=== PATIENT | male | born 1940 | race Caucasian/White ===

== ENCOUNTER 2020-09-09 11:53 | Inpatient (IN) | payer MEDICAID, MEDICARE ==
[2020-09-09] MEDS ORDERED: Potassium Chloride 10 MEQ Cap.ER PO ONE (13:20)
--- NOTE | 2020-09-09 13:21 | EDM.PDOC ---
ED HPI GENERAL MEDICAL PROBLEM - General Chief Complaint: Respiratory Problem Stated Complaint: COVID POSITIVE, TROUBLE BREATHING Time Seen by Provider: 09/09/20 13:20 Source of Information: Reports: Patient, EMS, Old Records, RN History Limitations: Reports: No Limitations - History of Present Illness INITIAL COMMENTS - FREE TEXT/NARRATIVE: 79 yo male with a dx of Covid about 12 days ago. Lives at [facility] x 1 yr. Not having fevers anymore. Became SOB yesterday and staff there decided to send him to the ER after he appeared to have labored breathing. His sats there were 97% on 4 liters/NC. Has had a course of Decadron since his Covid dx. EMS transported and reported labored breathing as well. Patient is feeling much better on arrival with no additional interventions. Onset: Gradual Onset Date: 09/08/20 Duration: Hour(s):, Constant Location: Reports: Chest Quality: Reports: Other (pain not reported) Severity: Mild Improves with: Reports: Other (oxygen) Worsens with: Reports: Other (uncertain) Context: Reports: Other (See HPI) Associated Symptoms: Reports: Shortness of Breath (now better). 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) - Related Data Allergies Allergy/AdvReac Type Severity Reaction Status Date / Time chocolate flavor Allergy Other Verified 09/09/20 12:56 spinach Allergy Cannot Verified 09/09/20 12:56 Remember Home Meds: Home Meds Acetaminophen [Pain Reliever] 325 mg PO Q4HR PRN 09/09/20 [History] Albuterol [Ventolin HFA] 2 puff IH Q4HR PRN 09/09/20 [History] Aspirin 325 mg PO BID 09/09/20 [History] Capsaicin 30 ml TP BID PRN 09/09/20 [History] Carb/Levo 25/100 2 cap PO DAILY 09/09/20 [History] Carb/Levo 50/200 1 cap PO BEDTIME 09/09/20 [History] Carb/Levo 50/200 1 cap PO BEDTIME PRN 09/09/20 [History] Clopidogrel Bisulfate [Clopidogrel] 75 mg PO DAILY 09/09/20 [History] DULoxetine HCl [Duloxetine HCl] 90 mg PO BEDTIME 09/09/20 [History] Fluticasone Propion/Salmeterol [Fluticasone-Salmeterol 500-50] 1 puff IH BID 09/09/20 [History] Magnesium Oxide 400 mg PO DAILY 09/09/20 [History] Meloxicam [Mobic] 15 mg PO DAILY 09/09/20 [History] Memantine [Namenda] 10 mg PO BID 09/09/20 [History] Midodrine 5 mg PO TID 09/09/20 [History] Mirtazapine 30 mg PO BEDTIME 09/09/20 [History] Omeprazole 20 mg PO DAILY 09/09/20 [History] Tamsulosin HCl 0.4 mg PO DAILY 09/09/20 [History] atorvaSTATin [Lipitor] 20 mg PO BEDTIME 09/09/20 [History] oxyCODONE 5 mg PO Q12HR PRN 09/09/20 [History] ED ROS GENERAL - Review of Systems Review Of Systems: See Below Constitutional: Reports: No Symptoms HEENT: Reports: No Symptoms Respiratory: Reports: Shortness of Breath (now better). Denies: Wheezing, Pleuritic Chest Pain, Cough, Sputum, Hemoptysis Cardiovascular: Reports: No Symptoms Endocrine: Reports: No Symptoms GI/Abdominal: Reports: No Symptoms : Reports: No Symptoms Musculoskeletal: Reports: No Symptoms Skin: Reports: No Symptoms Neurological: Reports: No Symptoms ED EXAM, GENERAL - Physical Exam Exam: See Below Exam Limited By: No Limitations General Appearance: Alert, WD/WN, No Apparent Distress Eye Exam: Bilateral Eye: Normal Inspection Ears: Normal External Exam, Normal Canal, Hearing Grossly Normal, Normal TMs Ear Exam: Bilateral Ear: Auricle Normal, Canal Normal, TM normal Nose: Normal Inspection, No Blood Throat/Mouth: Normal Inspection, Normal Lips, Normal Oropharynx, Normal Voice, No Airway Compromise Head: Atraumatic, Normocephalic Neck: Normal Inspection Respiratory/Chest: No Respiratory Distress, Lungs Clear, Normal Breath Sounds, No Accessory Muscle Use Cardiovascular: Regular Rate, Rhythm, No Edema GI/Abdominal: Normal Bowel Sounds, Soft, Non-Tender, No Distention Extremities: Normal Inspection, Normal Range of Motion, Non-Tender, No Pedal Edema Neurological: Alert, Oriented, CN II-XII Intact, Normal Cognition, No Motor/Sensory Deficits Psychiatric: Normal Affect, Normal Mood Skin Exam: Warm, Dry, Intact, Normal Color, No Rash Course - Vital Signs Last Recorded V/S: Last Vital Signs Temp 36.9 C 09/09/20 12:48 Pulse 67 09/09/20 15:25 Resp 18 09/09/20 14:02 BP 92/62 09/09/20 15:25 Pulse Ox 100 09/09/20 15:25 - Orders/Labs/Meds Orders: Active Orders 24 hr Category Date Time Status Ang Chest [CT] Stat Exams 09/09/20 13:49 Taken Iopamidol [Isovue-370 (76%)] Med 09/09/20 14:30 Active 100 ml IV . DIRECTED NS + KCl 20mEq/L [Normal Saline with 20 mEq KCl] 1,000 Med 09/09/20 14:00 Active ml IV ASDIRECTED Medication Orders Potassium Chloride/Sodium Chloride (Normal Saline With 20 Meq Kcl) 1,000 mls @ 500 mls/hr IV ASDIRECTED DOMINICK Last Admin: 09/09/20 14:06 Dose: 500 mls/hr Documented by: PREILOR Iopamidol (Isovue-370 (76%)) 100 ml IV . DIRECTED DOMINICK Stop: 09/09/20 20:00 Last Admin: 09/09/20 15:36 Dose: 100 ml Documented by: BO Labs: Laboratory Tests 09/09/20 09/09/20 09/09/20 Range/Units 12:43 12:43 12:43 WBC 6.7 (4.5-11.0) K/uL RBC 4.17 L (4.30-5.90) M/uL Hgb 12.3 (12.0-15.0) g/dL Hct 40.1 (40.0-54.0) % MCV 96 (80-98) fL MCH 30 (27-31) pg MCHC 31 L (32-36) % Plt Count 273 (150-400) K/uL D-Dimer, Quantitative 2597.58 H (0.0-500.0) ng/mL Sodium 142 (140-148) mmol/L Potassium 3.2 L (3.6-5.2) mmol/L Chloride 105 (100-108) mmol/L Carbon Dioxide 30 (21-32) mmol/L Anion Gap 10.2 (5.0-14.0) mmol/L BUN 25 H (7-18) mg/dL Creatinine 1.2 (0.8-1.3) mg/dL Est Cr Clr Drug Dosing 51.42 mL/min Estimated GFR (MDRD) 58 L (>60) Glucose 106 (74-106) mg/dL Calcium 8.6 (8.5-10.1) mg/dL Magnesium (1.8-2.4) mg/dL Lactate Dehydrogenase 138 (85-227) U/L C-Reactive Protein 9.96 H (0.0-0.3) mg/dL 09/09/20 Range/Units 13:20 WBC (4.5-11.0) K/uL RBC (4.30-5.90) M/uL Hgb (12.0-15.0) g/dL Hct (40.0-54.0) % MCV (80-98) fL MCH (27-31) pg MCHC (32-36) % Plt Count (150-400) K/uL D-Dimer, Quantitative (0.0-500.0) ng/mL Sodium (140-148) mmol/L Potassium (3.6-5.2) mmol/L Chloride (100-108) mmol/L Carbon Dioxide (21-32) mmol/L Anion Gap (5.0-14.0) mmol/L BUN (7-18) mg/dL Creatinine (0.8-1.3) mg/dL Est Cr Clr Drug Dosing mL/min Estimated GFR (MDRD) (>60) Glucose (74-106) mg/dL Calcium (8.5-10.1) mg/dL Magnesium 2.1 (1.8-2.4) mg/dL Lactate Dehydrogenase (85-227) U/L C-Reactive Protein (0.0-0.3) mg/dL Meds: Medications Generic Name Dose Route Start Last Admin Trade Name Freq PRN Reason Stop Dose Admin Potassium Chloride/Sodium Chloride 1,000 mls @ 500 mls/hr 09/09/20 14:00 09/09/20 14:06 Normal Saline With 20 Meq Kcl IV 500 mls/hr ASDIRECTED DOMINICK Administration Iopamidol 100 ml 09/09/20 14:30 09/09/20 15:36 Isovue-370 (76%) IV 09/09/20 20:00 100 ml . DIRECTED DOMINICK Administration Discontinued Medications Generic Name Dose Route Start Last Admin Trade Name Meron PRN Reason Stop Dose Admin Sodium Chloride 100 mls @ 3.5 mls/sec 09/09/20 14:30 09/09/20 15:36 Normal Saline IV 09/09/20 14:31 4 mls/sec ASDIRECTED DOMINICK Administration Potassium Chloride 40 meq 09/09/20 13:20 09/09/20 13:49 Potassium Chloride PO 09/09/20 13:21 40 meq ONETIME ONE Administration Sodium Chloride 10 ml 09/09/20 14:27 09/09/20 15:36 Saline Flush FLUSH 09/09/20 14:28 10 ml ONETIME ONE Administration - Radiology Interpretation Free Text/Narrative:: CXR-bilateral infiltrates of lower lobes CT angio-IMPRESSION: No pulmonary embolism. Airspace opacities in the right lung concerning for bacterial pneumonia. Coronary artery disease. Pleural calcifications. This can be seen with asbestos related pleural disease. Please note that all CT scans at this facility use dose modulation, iterative reconstruction, and/or weight-based dosing when appropriate to reduce radiation dose to as low as reasonably achievable. Dictated by Abbey Russell MD @ Sep 09 2020 3:38PM (Electronic Signature) CT Results Date: 09/09/20 CT Results Time: 15:51 Departure - Departure Time of Disposition: 15:45 Disposition: Home, Self-Care 01 Condition: Fair Clinical Impression: Elevated d-dimer, Hypokalemia, Mild dehydration - Discharge Information *PRESCRIPTION DRUG MONITORING PROGRAM REVIEWED*: Not Applicable *COPY OF PRESCRIPTION DRUG MONITORING REPORT IN PATIENT MIRI: Not Applicable Instructions: Potassium Content of Foods Referrals: Jonh Tavarez MD [Primary Care Provider] - Forms: ED Department Discharge Additional Instructions: Increase the foods that are tati in potassium in your diet. Drink enough fluids so your urine is light yellow in color. Recheck as needed. Sepsis Event Note (ED) - Evaluation Sepsis Screening Result: No Definite Risk - Focused Exam Vital Signs: Vital Signs Temp Pulse Resp BP Pulse Ox 09/09/20 15:25 67 92/62 100 09/09/20 14:02 75 18 108/67 99 09/09/20 12:48 36.9 C 64 18 136/63 98 09/09/20 11:56 36.9 C 64 18 136/63 98 - My Orders Last 24 Hours: My Active Orders 09/09/20 13:49 Ang Chest [CT] Stat 09/09/20 14:00 NS + KCl 20mEq/L [Normal Saline with 20 mEq KCl] 1,000 ml IV ASDIRECTED 09/09/20 14:30 Iopamidol [Isovue-370 (76%)] 100 ml IV . DIRECTED - Assessment/Plan Last 24 Hours: My Active Orders 09/09/20 13:49 Ang Chest [CT] Stat 09/09/20 14:00 NS + KCl 20mEq/L [Normal Saline with 20 mEq KCl] 1,000 ml IV ASDIRECTED 09/09/20 14:30 Iopamidol [Isovue-370 (76%)] 100 ml IV . DIRECTED
[2020-09-09] MEDS ORDERED: NS + KCl 20mEq/L 1,000 ML IV SCH (14:00)
--- NOTE | 2020-09-09 14:03 | CR ---
CHEST: 2 view CLINICAL HISTORY:SOB COMPARISON:2007 FINDINGS: Heart size is borderline enlarged pulmonary vascular is normal. Patient has a permanent cardiac pacer. There are atherosclerotic changes in the aorta. There is ill-defined patchy infiltrates in both lower lung argueta, right greater than left. There is some chronic blunting the left costophrenic angle IMPRESSION: Bilateral lower lobe pneumonic infiltrates, right greater than left
[2020-09-09] MEDS ORDERED: Sodium Chloride 0.9% 10 ML Syringe FLUSH ONE (14:27)
[2020-09-09] MEDS ORDERED: Iopamidol 755 Mg/ML 100 ML Bottle IV SCH (14:30)
[2020-09-09] MEDS ORDERED: Sodium Chloride 0.9% 100 ML IV SCH (14:30)
--- NOTE | 2020-09-09 15:51 | CRLCT ---
INDICATION: Shortness of breath, elevated D-dimer, recent COVID TECHNIQUE: CT chest pulmonary PE protocol acquired with 100 cc Isovue IV contrast. COMPARISON: None FINDINGS: Cardiovascular structures: Normal vascular enhancement of the pulmonary arteries, no sign of pulmonary embolism. Heart size is normal. Coronary artery calcifications. No sign of aneurysm in the thoracic aorta. Left-sided pacemaker with lead tips in the right atrium and right ventricle. Mediastinum and diana: No mass or adenopathy. Lungs: Patchy airspace opacities in the right upper and lower lobes. Small calcified granuloma left upper lobe. Pleura and pericardium: No effusions. There are pleural calcifications. Chest wall and axilla: No mass or adenopathy. Upper abdomen: Simple cysts on both kidneys. Bones: No significant findings. IMPRESSION: No pulmonary embolism. Airspace opacities in the right lung concerning for bacterial pneumonia. Coronary artery disease. Pleural calcifications. This can be seen with asbestos related pleural disease. Please note that all CT scans at this facility use dose modulation, iterative reconstruction, and/or weight-based dosing when appropriate to reduce radiation dose to as low as reasonably achievable. Dictated by Abbey Russell MD @ Sep 09 2020 3:38PM Signed by Dr. Abbey Russell @ Sep 09 2020 3:49PM
[2020-09-09] MEDS ORDERED: ALPRAZolam 0.25 MG Tab PO ONE (17:03)
[2020-09-09] MEDS ORDERED: Azithromycin 250 MG Tab PO SCH (17:15)
[2020-09-09] MEDS ORDERED: Albuterol 0.083% 2.5 MG/3 ML Neb Soln NEB ONE (17:54)
--- NOTE | 2020-09-09 18:34 | PCM.HP.2 ---
H&P History of Present Illness - General Date of Service: 09/09/20 Admit Problem/Dx: Admission Diagnosis/Problem Admission Diagnosis/Problem Pneumonia Source of Information: Patient, Family, Provider History Limitations: Reports: No Limitations - History of Present Illness Initial Comments - Free Text/Narative: CC: I can't breathe HPI: Pierce presents to the emergency room today with shortness of breath. He reports onset of symptoms about 24 hours prior to my evaluation which was about suppertime last night. He had not previously had any difficulty with coughing after eating or drinking. He felt short of breath most of the night and was still short of breath this morning. He does note that after he got to the emergency room his breathing seemed to improve. He was here for several hours and did not have any episodes of shortness of breath. Initially he was on s upplemental oxygen but this was weaned down and weaned off over a few hours. He does not report any chest pain. He has not produced any sputum but does have a loose sounding cough. He has not had any fevers. He does report some epigastric abdominal pain that started this afternoon. He was diagnosed with Covid about 12 days ago and has completed a course of steroids and the symptoms were all getting better or had resolved prior to onset of symptoms yesterday. No change in bowel or bladder habits. No lower extremity edema. Work-up in the emergency room was fairly unremarkable. He does still have an elevated D-dimer and CRP from his Covid infection. Chest x-ray showed a very subtle right lower lung infiltrate. CT pulmonary angiogram did not show any pulmonary embolism but did show a small right-sided pneumonia. Initially the plan was for the patient to go back to the correction with outpatient therapy but he became short of breath after eating his supper meal with significant tachypnea. He will be admitted for observation. - Related Data Allergies/Adverse Reactions: Allergies Allergy/AdvReac Type Severity Reaction Status Date / Time chocolate flavor Allergy Other Verified 09/09/20 12:56 spinach Allergy Cannot Verified 09/09/20 12:56 Remember Home Medications: Home Meds Acetaminophen [Pain Reliever] 325 mg PO Q4HR PRN 09/09/20 [History] Albuterol [Ventolin HFA] 2 puff IH Q4HR PRN 09/09/20 [History] Aspirin 325 mg PO BID 09/09/20 [History] Azithromycin 250 mg PO DAILY #4 tablet 09/09/20 [Rx] Capsaicin 30 ml TP BID PRN 09/09/20 [History] Carbidopa/Levodopa [Carbidopa-Levo ER 50-200] 1 tab PO BEDTIME 09/09/20 [History] Carbidopa/Levodopa [Carbidopa-Levo ER 50-200] 1 tab PO BEDTIME PRN 09/09/20 [History] Carbidopa/Levodopa [Carbidopa-Levodopa 25-250] 2 tab PO QID 09/09/20 [History] Clopidogrel Bisulfate [Clopidogrel] 75 mg PO DAILY 09/09/20 [History] DULoxetine HCl [Duloxetine HCl] 90 mg PO BEDTIME 09/09/20 [History] Fluticasone Propion/Salmeterol [Fluticasone-Salmeterol 500-50] 1 puff IH BID 09/09/20 [History] Magnesium Oxide 400 mg PO DAILY 09/09/20 [History] Meloxicam [Mobic] 15 mg PO DAILY 09/09/20 [History] Memantine [Namenda] 10 mg PO BID 09/09/20 [History] Midodrine 5 mg PO TID 09/09/20 [History] Mirtazapine 30 mg PO BEDTIME 09/09/20 [History] Omeprazole 20 mg PO DAILY 09/09/20 [History] Tamsulosin HCl 0.4 mg PO DAILY 09/09/20 [History] atorvaSTATin [Lipitor] 20 mg PO BEDTIME 09/09/20 [History] oxyCODONE 5 mg PO Q12HR PRN 09/09/20 [History] Past Medical History HEENT History: Reports: Allergic Rhinitis, Macular Degeneration, Other (See Below) Other HEENT History: dry eye Cardiovascular History: Reports: Pacemaker, Other (See Below) Other Cardiovascular History: hypotension Respiratory History: Reports: Asthma Gastrointestinal History: Reports: Chronic Constipation, GERD Genitourinary History: Reports: BPH Musculoskeletal History: Reports: Back Pain, Chronic, Fracture, Osteoporosis Neurological History: Reports: Parkinson's Other Neuro History: dementia Psychiatric History: Reports: Dementia, Depression - Infectious Disease History Infectious Disease History: Reports: Other (See Below) Other Infectious Disease History: states unknown - Past Surgical History Cardiovascular Surgical History: Reports: Coronary Artery Stent Musculoskeletal Surgical History: Reports: Hip Replacement Social & Family History - Family History Cardiac: Denies: CAD - Tobacco Use Tobacco Use Status *Q: Former Tobacco User Used Tobacco, but Quit: Yes Month/Year Tobacco Last Used: unknown - Caffeine Use Caffeine Use: Reports: Soda - Recreational Drug Use Recreational Drug Use: No H&P Review of Systems - Review of Systems: Review Of Systems: See Below Free Text/Narrative: A complete 12 point review of systems was obtained. Pertinent positives and negatives are noted in the history of present illness. All other systems were reviewed and were negative except as noted. Exam - Exam Exam: See Below - Vital Signs Vital Signs: Last Vital Signs Temp 36.1 C 09/09/20 17:23 Pulse 77 09/09/20 17:23 Resp 22 H 09/09/20 17:23 BP 116/50 L 09/09/20 17:23 Pulse Ox 97 09/09/20 17:23 Weight: 85.729 kg - Exam Quality Assessment: No: Supplemental Oxygen General: Alert, Oriented, Cooperative, Mild Distress (Increased work of breathing) HEENT: Conjunctiva Clear, Other (Poor dentition with few teeth). No: Mucosa Moist & Guinda (Dry) Neck: Supple, Trachea Midline. No: JVD Lungs: Rhonchi (Mild diffuse and especially in the upper lung argueta). No: Normal Respiratory Effort (Increased work of breathing) Cardiovascular: Regular Rate, Regular Rhythm, Other (Pacemaker in the left upper chest with no surrounding erythema or warmth). No: Systolic Murmur GI/Abdominal Exam: Normal Bowel Sounds, Soft, No Distention, Tender (Moderate tenderness in the epigastrium and left upper quadrant) Extremities: No Pedal Edema. No: Increased Warmth Peripheral Pulses: 2+: Dorsalis Pedis (L), Dorsalis Pedis (R) Skin: Warm, Dry Neuro Extensive - Mental Status: Alert, Nl Response to Commands Neuro Extensive - Motor, Sensory, Reflexes: Tremor (Tremor of both arms and hands). No: Dysarthria, Abnormal Motor Psychiatric: Alert, Normal Affect - Patient Data Lab Results Last 24 hrs: Laboratory Results - last 24 hr 09/09/20 09/09/20 09/09/20 Range/Units 12:43 12:43 12:43 WBC 6.7 (4.5-11.0) K/uL RBC 4.17 L (4.30-5.90) M/uL Hgb 12.3 (12.0-15.0) g/dL Hct 40.1 (40.0-54.0) % MCV 96 (80-98) fL MCH 30 (27-31) pg MCHC 31 L (32-36) % Plt Count 273 (150-400) K/uL D-Dimer, Quantitative 2597.58 H (0.0-500.0) ng/mL Sodium 142 (140-148) mmol/L Potassium 3.2 L (3.6-5.2) mmol/L Chloride 105 (100-108) mmol/L Carbon Dioxide 30 (21-32) mmol/L Anion Gap 10.2 (5.0-14.0) mmol/L BUN 25 H (7-18) mg/dL Creatinine 1.2 (0.8-1.3) mg/dL Est Cr Clr Drug Dosing 51.42 mL/min Estimated GFR (MDRD) 58 L (>60) Glucose 106 (74-106) mg/dL Calcium 8.6 (8.5-10.1) mg/dL Magnesium (1.8-2.4) mg/dL Lactate Dehydrogenase 138 (85-227) U/L C-Reactive Protein 9.96 H (0.0-0.3) mg/dL 1118/20 Range/Units 13:20 WBC (4.5-11.0) K/uL RBC (4.30-5.90) M/uL Hgb (12.0-15.0) g/dL Hct (40.0-54.0) % MCV (80-98) fL MCH (27-31) pg MCHC (32-36) % Plt Count (150-400) K/uL D-Dimer, Quantitative (0.0-500.0) ng/mL Sodium (140-148) mmol/L Potassium (3.6-5.2) mmol/L Chloride (100-108) mmol/L Carbon Dioxide (21-32) mmol/L Anion Gap (5.0-14.0) mmol/L BUN (7-18) mg/dL Creatinine (0.8-1.3) mg/dL Est Cr Clr Drug Dosing mL/min Estimated GFR (MDRD) (>60) Glucose (74-106) mg/dL Calcium (8.5-10.1) mg/dL Magnesium 2.1 (1.8-2.4) mg/dL Lactate Dehydrogenase (85-227) U/L C-Reactive Protein (0.0-0.3) mg/dL Result Diagrams: 09/09/20 12:43 09/09/20 12:43 Imaging Impressions Last 24 hrs: All images below were personally reviewed Chest [id number] subtle right lower lung infiltrate but no large infiltrate. No mass or effusion. Heart size is normal. CT pulmonary angiogram-no pulmonary embolism. Very small right upper lung infiltrate and small to moderate right lower lung infiltrate consistent with pneumonia. No significant effusion. No mass. Sepsis Event Note - Evaluation Sepsis Screening Result: No Definite Risk - Focused Exam Vital Signs: Vital Signs Temp Pulse Resp BP Pulse Ox 09/09/20 17:23 36.1 C 77 22 H 116/50 L 97 09/09/20 15:25 67 92/62 100 09/09/20 14:02 75 18 108/67 99 09/09/20 12:48 36.9 C 64 18 136/63 98 09/09/20 11:56 36.9 C 64 18 136/63 98 *Q Meaningful Use (ADM) - VTE Risk Assess *Q Each Risk Factor Represents 1 Point: Obesity ( BMI > 25 kg/m2), Serious lung disease including pneumonia Total Score 1 Point Risk Factors: 2 Each Risk Factor Represents 2 Points: None Total Score 2 Point Risk Factors: 0 Each Risk Factor Represents 3 Points: Age 75 Years or Greater Total Score 3 Point Risk Factors: 3 Each Risk Factor Represents 5 Points: Elective Major Lower Extremity Arthroplasty Total Score 5 Point Risk Factors: 5 Venous Thromboembolism Risk Factor Score *Q: 10 - Problem List (1) Right lower lobe pneumonia SNOMED Code(s): 957345669 ICD Code: J18.9 - PNEUMONIA, UNSPECIFIED ORGANISM Status: Acute Current V isit: Yes Qualifiers: Pneumonia type: due to unspecified organism Qualified Code(s): J18.9 - Pneumonia, unspecified organism (2) Parkinson's disease SNOMED Code(s): 18403649 ICD Code: G20 - PARKINSON'S DISEASE Status: Chronic Current Visit: Yes (3) COPD (chronic obstructive pulmonary disease) SNOMED Code(s): 30873248 ICD Code: J44.9 - CHRONIC OBSTRUCTIVE PULMONARY DISEASE, UNSPECIFIED Status: Chronic Current Visit: Yes Qualifiers: Emphysema type: unspecified Problem List Initiated/Reviewed/Updated: Yes Orders Last 24hrs: Active Orders 24 hr Category Date Time Status Patient Status Manage Transfer [TRANSFER] Routine ADT 09/09/20 18:26 Ordered RT Aerosol Therapy [RC] ASDIRECTED Care 09/09/20 17:55 Active TROPONIN I [CHEM] Urgent Lab 09/09/20 18:25 Received Azithromycin [Zithromax] Med 09/09/20 17:15 Active 500 mg PO DAILY Iopamidol [Isovue-370 (76%)] Med 09/09/20 14:30 Active 100 ml IV . DIRECTED cefTRIAXone [Rocephin] 1 gm Med 09/09/20 19:00 Active Sodium Chloride 0.9% [Normal Saline] 50 ml IV Q24H Resuscitation Status Routine Resus Stat 09/09/20 18:30 Ordered Medication Orders Azithromycin (Zithromax) 500 mg PO DAILY DOMINICK Last Admin: 09/09/20 17:10 Dose: 500 mg Documented by: PREILOR Ceftriaxone Sodium 1 gm/ (Sodium Chloride) 50 mls @ 100 mls/hr IV Q24H DOMINICK Iopamidol (Isovue-370 (76%)) 100 ml IV . DIRECTED DOMINICK Stop: 09/09/20 20:00 Last Admin: 09/09/20 15:36 Dose: 100 ml Documented by: BO Assessment/Plan Comment:: ASSESSMENT AND PLAN - Right lower lobe pneumonia-manifestations including tachypnea and cough. This could possibly be aspiration pneumonia versus community-acquired pneumonia versus secondary bacterial pneumonia. CT scan showed a very small right upper lung infiltrate and a small to moderate right lower lung infiltrate. He did have worsening of symptoms right after he ate is supper. I did personally observe him coughing after drinking water. He is not febrile. His white count is normal. He did have Covid about 2 weeks ago but has seemed to recover from this. -Ceftriaxone and azithromycin -Supplement oxygen if needed -Scheduled and as needed nebulizers -Symptomatic management of the cough -Speech pathology evaluation tomorrow COPD-this has been stable. No evidence for exacerbation at this time. No wheezing. -Continue home medications Parkinson's disease-tremor is more impressive in the setting of his acute illness. -Continue home medications Maintenance issues - - DVT prophylaxis -he is on twice daily aspirin - GI prophylaxis -PPI - Nutrition -pured diet with thickened liquids - Grant catheter -not indicated CODE STATUS -DNR/DNI Admission justification -patient will be referred observation status for close monitoring as antibiotics are initiated and speech pathology evaluates the patient. Disposition -I would anticipate discharge back to the correction after the hospital stay Shabbir Dunn M.D. - Mortality Measure Prognosis:: Good
[2020-09-09] MEDS ORDERED: cefTRIAXone 1 GM in Sodium Chloride 0.9% 50 ML IV SCH (19:00)
[2020-09-09] MEDS ORDERED: Ondansetron 4 MG Tab.DIS PO PRN (19:19)
[2020-09-09] MEDS ORDERED: guaiFENesin/Dextromethorphan 100-10 MG/5 ML Soln 10 ML Cup PO PRN (19:19)
[2020-09-09] MEDS ORDERED: LORazepam 0.5 MG Tab PO PRN (19:19)
[2020-09-09] MEDS ORDERED: Magnesium Hydroxide 400 MG/5 ML Susp 30 ML Cup PO PRN (19:19)
[2020-09-09] MEDS ORDERED: oxyCODONE 5 MG Tab PO PRN (19:19)
[2020-09-09] MEDS ORDERED: Acetaminophen 325 MG Tab PO PRN (19:19)
[2020-09-09] MEDS ORDERED: Albuterol 0.083% 2.5 MG/3 ML Neb Soln NEB PRN (19:19)
[2020-09-09] MEDS ORDERED: Benzonatate 100 MG Cap PO PRN (19:19)
[2020-09-09] MEDS ORDERED: Ondansetron 4 MG/2 ML SDV IV PRN (19:19)
[2020-09-09] MEDS: Albuterol/Ipratropium 3.0-0.5 MG/3 ML Neb Soln NEB SCH (20:00)
[2020-09-09] MEDS ORDERED: LORazepam 2 MG/ML SDV IVPUSH PRN (20:07)
[2020-09-09] MEDS ORDERED: Morphine 4 MG/ML Syringe IVPUSH PRN (20:59)
[2020-09-09] MEDS ORDERED: Lactobacillus Rhamnosus GG (Probiotic) Cap PO SCH (21:00)
[2020-09-09] MEDS ORDERED: methylPREDNISolone Sodium Succinate 125 MG/2 ML SDV IVPUSH ONE (21:00)
[2020-09-09] MEDS ORDERED: Aspirin 325 MG Tab.EC PO SCH (21:00)
[2020-09-09] MEDS ORDERED: Melatonin 3 MG Tab PO SCH (21:00)
[2020-09-09] MEDS: Meropenem 1 GM in Sodium Chloride 0.9% 100 ML IV SCH (21:11)
[2020-09-09] MEDS: Morphine 4 MG/ML Syringe IVPUSH PRN (22:29)
[2020-09-09] MEDS: LORazepam 2 MG/ML SDV IVPUSH PRN (22:52)
[2020-09-09] MEDS ORDERED: Furosemide 20 MG/2 ML VIAL IVPUSH ONE (23:00)
[2020-09-09] MEDS: Ketorolac 30 MG/ML SDV IVPUSH PRN (23:41)
[2020-09-10] MEDS: Morphine 4 MG/ML Syringe IVPUSH PRN ×9 (00:19→23:53)
--- NOTE | 2020-09-10 00:40 | PCM.SN.2 ---
- Free Text/Narrative Note: time: 2400 call from ICU Nursing. concerns of restlessness, increase fever, anxious. complaints of abdominal pain O: vital signs Temp 101.2 to 97.4- pulse 84 Resp rate 28 B/P 139/115 Oxygen sat 96% on 2 liters., Grant cath with clear yellow urine Mr. Monsivais has mild tremors (has Parkinson's), mild pallor, lungs with decreased breath sound, crackles noted. abdomen soft. legs not edema, cyanosis A: right pneumonia, Covid 19 - 12 days ago. P: labs, CBC, BMP, ABG. Imaging- chest and abdomen order: NPO, IV Tylenol 1000mg every 6 hours as needed for fever or pain. continue current medication and monitoring
[2020-09-10] MEDS ORDERED: Acetaminophen 1,000 MG in Premix Bag 1 BAG IV ONE (00:45)
[2020-09-10] MEDS: LORazepam 2 MG/ML SDV IVPUSH PRN ×5 (03:29→21:47)
[2020-09-10] MEDS: methylPREDNISolone Sodium Succinate 125 MG/2 ML SDV IVPUSH SCH ×3 (04:59→21:33)
[2020-09-10] MEDS: Meropenem 1 GM in Sodium Chloride 0.9% 100 ML IV SCH ×3 (05:01→21:33)
[2020-09-10] MEDS ORDERED: Acetaminophen 1,000 MG in Premix Bag 1 BAG IV SCH (06:00)
[2020-09-10] MEDS: Albuterol/Ipratropium 3.0-0.5 MG/3 ML Neb Soln NEB SCH ×5 (07:02→21:48)
[2020-09-10] MEDS ORDERED: Pantoprazole 40 MG Tab.CR PO SCH (07:30)
[2020-09-10] MEDS ORDERED: Capsaicin 0.025% Crm 60 GM Tube TOP PRN (07:53)
[2020-09-10] MEDS: Ketorolac 30 MG/ML SDV IVPUSH PRN (08:42)
[2020-09-10] MEDS ORDERED: Memantine 10 MG Tab PO SCH (09:00)
[2020-09-10] MEDS ORDERED: Clopidogrel 75 MG Tab PO SCH (09:00)
[2020-09-10] MEDS ORDERED: Meloxicam 7.5 MG Tab PO SCH (09:00)
[2020-09-10] MEDS ORDERED: Tamsulosin 0.4 MG Cap.ER PO SCH (09:00)
[2020-09-10] MEDS ORDERED: Magnesium Oxide 400 MG Tab PO SCH (09:00)
[2020-09-10] MEDS ORDERED: Azithromycin 250 MG Tab PO SCH (09:00)
[2020-09-10] MEDS ORDERED: Midodrine 5 MG Tab PO SCH (09:00)
[2020-09-10] MEDS ORDERED: Acetaminophen 650 MG Supp RECTAL PRN (09:10)
--- NOTE | 2020-09-10 09:12 | PCM.PN ---
- General Info Date of Service: 09/10/20 Subjective Update: Patient had a decline in his respiratory status overnight. He had increasing tachypnea and hypoxia. He was started on noninvasive positive pressure ventilation with a good response. He continued to be somewhat tachypneic but after several doses of morphine and lorazepam was able to settle down and has been resting comfortably since then. His oxygenation has been excellent since his respiratory rate slowed down. He did have a fever last night but temper ature is normal today. He was noted to be coughing after trying to take sips of water last night prior to him becoming n.p.o. He is minimally responsive this morning and not able to get any history out of him. Functional Status: Denies: Tolerating Diet - Review of Systems General: Reports: Fever Pulmonary: Reports: Shortness of Breath, Cough Psychiatric: Reports: Confusion - Patient Data Vitals - Most Recent: Last Vital Signs Temp 35 C L 09/10/20 07:34 Pulse 67 09/10/20 07:34 Resp 15 09/10/20 04:45 BP 138/80 09/10/20 07:34 Pulse Ox 94 L 09/10/20 07:34 Weight - Most Recent: 85.729 kg I&O - Last 24 Hours: Intake & Output 09/09/20 09/10/20 09/10/20 22:59 06:59 14:59 Intake Total 450 Output Total 1400 Balance -950 Lab Results Last 24 Hours: Laboratory Results - last 24 hr 09/09/20 09/09/20 09/09/20 Range/Units 12:43 12:43 12:43 WBC 6.7 (4.5-11.0) K/uL RBC 4.17 L (4.30-5.90) M/uL Hgb 12.3 (12.0-15.0) g/dL Hct 40.1 (40.0-54.0) % MCV 96 (80-98) fL MCH 30 (27-31) pg MCHC 31 L (32-36) % Plt Count 273 (150-400) K/uL Neut % (Auto) (36-66) % Lymph % (Auto) (24-44) % Routt % (Auto) (2-6) % Eos % (Auto) (2-4) % Baso % (Auto) (0-1) % D-Dimer, Quantitative 2597.58 H (0.0-500.0) ng/mL Puncture Site ABG pH (7.350-7.450) ABG pCO2 (35.0-42.0) mmHg ABG pO2 (75.0-100.0) mmHg ABG HCO3 (22.0-26.0) mmol/L ABG Total CO2 (23.0-27.0) mmol/L ABG O2 Saturation (95.0-98.0) % ABG O2 Content (15.0-23.0) %vol ABG Base Excess mm/L ABG Hemoglobin (13.5-18.0) g/dL ABG Oxyhemoglobin % ABG Carboxyhemoglobin (0.0-1.6) % ABG Methemoglobin % Matt Test O2 Delivery Device Oxygen Flow Rate L Sodium 142 (140-148) mmol/L Potassium 3.2 L (3.6-5.2) mmol/L Chloride 105 (100-108) mmol/L Carbon Dioxide 30 (21-32) mmol/L Anion Gap 10.2 (5.0-14.0) mmol/L BUN 25 H (7-18) mg/dL Creatinine 1.2 (0.8-1.3) mg/dL Est Cr Clr Drug Dosing 51.42 mL/min Estimated GFR (MDRD) 58 L (>60) Glucose 106 (74-106) mg/dL Calcium 8.6 (8.5-10.1) mg/dL Magnesium (1.8-2.4) mg/dL Lactate Dehydrogenase 138 (85-227) U/L Troponin I (0.000-0.056) ng/mL C-Reactive Protein 9.96 H (0.0-0.3) mg/dL Procalcitonin ng/mL 09/09/20 09/09/20 09/10/20 Range/Units 13:20 18:25 00:37 WBC 11.9 H (4.5-11.0) K/uL RBC 4.34 (4.30-5.90) M/uL Hgb 13.0 (12.0-15.0) g/dL Hct 39.9 L (40.0-54.0) % MCV 92 (80-98) fL MCH 30 (27-31) pg MCHC 33 (32-36) % Plt Count 287 (150-400) K/uL Neut % (Auto) 96 H (36-66) % Lymph % (Auto) 2 L (24-44) % Routt % (Auto) 2 (2-6) % Eos % (Auto) 0 L (2-4) % Baso % (Auto) 0 (0-1) % D-Dimer, Quantitative (0.0-500.0) ng/mL Puncture Site ABG pH (7.350-7.450) ABG pCO2 (35.0-42.0) mmHg ABG pO2 (75.0-100.0) mmHg ABG HCO3 (22.0-26.0) mmol/L ABG Total CO2 (23.0-27.0) mmol/L ABG O2 Saturation (95.0-98.0) % ABG O2 Content (15.0-23.0) %vol ABG Base Excess mm/L ABG Hemoglobin (13.5-18.0) g/dL ABG Oxyhemoglobin % ABG Carboxyhemoglobin (0.0-1.6) % ABG Methemoglobin % Matt Test O2 Delivery Device Oxygen Flow Rate L Sodium (140-148) mmol/L Potassium (3.6-5.2) mmol/L Chloride (100-108) mmol/L Carbon Dioxide (21-32) mmol/L Anion Gap (5.0-14.0) mmol/L BUN (7-18) mg/dL Creatinine (0.8-1.3) mg/dL Est Cr Clr Drug Dosing mL/min Estimated GFR (MDRD) (>60) Glucose (74-106) mg/dL Calcium (8.5-10.1) mg/dL Magnesium 2.1 (1.8-2.4) mg/dL Lactate Dehydrogenase (85-227) U/L Troponin I < 0.017 (0.000-0.056) ng/mL C-Reactive Protein (0.0-0.3) mg/dL Procalcitonin ng/mL 09/10/20 09/10/20 09/10/20 Range/Units 00:37 00:37 00:37 WBC (4.5-11.0) K/uL RBC (4.30-5.90) M/uL Hgb (12.0-15.0) g/dL Hct (40.0-54.0) % MCV (80-98) fL MCH (27-31) pg MCHC (32-36) % Plt Count (150-400) K/uL Neut % (Auto) (36-66) % Lymph % (Auto) (24-44) % Routt % (Auto) (2-6) % Eos % (Auto) (2-4) % Baso % (Auto) (0-1) % D-Dimer, Quantitative (0.0-500.0) ng/mL Puncture Site Rt radial ABG pH 7.552 H (7.350-7.450) ABG pCO2 23.9 L (35.0-42.0) mmHg ABG pO2 73.4 L (75.0-100.0) mmHg ABG HCO3 21.0 L (22.0-26.0) mmol/L ABG Total CO2 18.1 L (23.0-27.0) mmol/L ABG O2 Saturation 95.7 (95.0-98.0) % ABG O2 Content 17.5 (15.0-23.0) %vol ABG Base Excess 0.3 mm/L ABG Hemoglobin 13.2 L (13.5-18.0) g/dL ABG Oxyhemoglobin 94.3 % ABG Carboxyhemoglobin 0.9 (0.0-1.6) % ABG Methemoglobin 0.6 % Matt Test Passed O2 Delivery Device Nasal cannula Oxygen Flow Rate 1.0 L Sodium 143 (140-148) mmol/L Potassium 4.0 (3.6-5.2) mmol/L Chloride 107 (100-108) mmol/L Carbon Dioxide 21 (21-32) mmol/L Anion Gap 14.9 H (5.0-14.0) mmol/L BUN 24 H (7-18) mg/dL Creatinine 1.3 (0.8-1.3) mg/dL Est Cr Clr Drug Dosing 47.46 mL/min Estimated GFR (MDRD) 53 L (>60) Glucose 171 H (74-106) mg/dL Calcium 8.9 (8.5-10.1) mg/dL Magnesium (1.8-2.4) mg/dL Lactate Dehydrogenase (85-227) U/L Troponin I 0.019 (0.000-0.056) ng/mL C-Reactive Protein (0.0-0.3) mg/dL Procalcitonin ng/mL 09/10/20 09/10/20 09/10/20 Range/Units 05:31 05:31 05:31 WBC 12.0 H (4.5-11.0) K/uL RBC 4.26 L (4.30-5.90) M/uL Hgb 12.4 (12.0-15.0) g/dL Hct 40.2 (40.0-54.0) % MCV 94 (80-98) fL MCH 29 (27-31) pg MCHC 31 L (32-36) % Plt Count 278 (150-400) K/uL Neut % (Auto) (36-66) % Lymph % (Auto) (24-44) % Routt % (Auto) (2-6) % Eos % (Auto) (2-4) % Baso % (Auto) (0-1) % D-Dimer, Quantitative (0.0-500.0) ng/mL Puncture Site ABG pH (7.350-7.450) ABG pCO2 (35.0-42.0) mmHg ABG pO2 (75.0-100.0) mmHg ABG HCO3 (22.0-26.0) mmol/L ABG Total CO2 (23.0-27.0) mmol/L ABG O2 Saturation (95.0-98.0) % ABG O2 Content (15.0-23.0) %vol ABG Base Excess mm/L ABG Hemoglobin (13.5-18.0) g/dL ABG Oxyhemoglobin % ABG Carboxyhemoglobin (0.0-1.6) % ABG Methemoglobin % Matt Test O2 Delivery Device Oxygen Flow Rate L Sodium 144 (140-148) mmol/L Potassium 4.5 (3.6-5.2) mmol/L Chloride 108 (100-108) mmol/L Carbon Dioxide 24 (21-32) mmol/L Anion Gap 12.0 (5.0-14.0) mmol/L BUN 24 H (7-18) mg/dL Creatinine 1.2 (0.8-1.3) mg/dL Est Cr Clr Drug Dosing 51.42 mL/min Estimated GFR (MDRD) 58 L (>60) Glucose 160 H (74-106) mg/dL Calcium 8.3 L (8.5-10.1) mg/dL Magnesium (1.8-2.4) mg/dL Lactate Dehydrogenase (85-227) U/L Troponin I (0.000-0.056) ng/mL C-Reactive Protein (0.0-0.3) mg/dL Procalcitonin < 0.05 ng/mL Med Orders - Current: Current Medications Acetaminophen (Tylenol) 650 mg RECTAL Q4H PRN PRN Reason: Pain/Fever Albuterol (Proventil Neb Soln) 2.5 mg NEB Q4H PRN PRN Reason: Shortness Of Breath/wheezing Albuterol/Ipratropium (Duoneb 3.0-0.5 Mg/3 Ml) 3 ml NEB QIDRT [facility] Last Admin: 09/10/20 07:02 Dose: 3 ml Documented by: Benzonatate (Tessalon Perles) 100 mg PO TID PRN PRN Reason: Cough Capsaicin (Zostrix 0.025% Crm) 0 gm TOP BID PRN PRN Reason: PAIN Meropenem 1 gm/ Sodium (Chloride) 100 mls @ 200 mls/hr IV Q8H [facility] Last Admin: 09/10/20 05:01 Dose: 200 mls/hr Documented by: Levofloxacin/Dextrose 750 mg/ (Premix) 150 mls @ 100 mls/hr IV Q24H [facility] Ketorolac Tromethamine (Toradol) 15 mg IVPUSH Q6H PRN PRN Reason: Pain/Fever Stop: 09/14/20 20:10 Last Admin: 09/10/20 08:42 Dose: 15 mg Documented by: Lorazepam (Ativan) 0.5 mg IVPUSH Q2H PRN PRN Reason: Anxiety Last Admin: 09/10/20 08:44 Dose: 0.5 mg Documented by: Methylprednisolone Sodium Succinate (Solu-Medrol) 62.5 mg IVPUSH Q8H [facility] Last Admin: 09/10/20 04:59 Dose: 62.5 mg Documented by: Mometasone Furoate/Formoterol Fumar (Dulera 200-5 Mcg) 0 puff IH BIDRT [facility] Morphine Sulfate (Morphine) 4 mg IVPUSH Q1H PRN PRN Reason: air hunger Last Admin: 09/10/20 04:54 Dose: 4 mg Documented by: Ondansetron HCl (Zofran) 4 mg IV Q6H PRN PRN Reason: Nausea/Vomiting Discontinued Medications Acetaminophen (Tylenol) 650 mg PO Q4H PRN PRN Reason: Pain (Mild 1-3)/fever Last Admin: 09/09/20 19:36 Dose: 650 mg Documented by: Albuterol (Proventil Neb Soln) 2.5 mg NEB ONETIME ONE Stop: 09/09/20 17:55 Last Admin: 09/09/20 18:05 Dose: 2.5 mg Documented by: Alprazolam (Xanax) 0.125 mg PO NOW ONE Stop: 09/09/20 17:04 Last Admin: 09/09/20 17:11 Dose: 0.125 mg Documented by: Aspirin (Ecotrin) 325 mg PO BID [facility] Atorvastatin Calcium (Lipitor) 20 mg PO BEDTIME [facility] Azithromycin (Zithromax) 500 mg PO DAILY [facility] Last Admin: 09/09/20 17:10 Dose: 500 mg Documented by: Azithromycin (Zithromax) 250 mg PO DAILY [facility] Stop: 09/13/20 09:01 Carbidopa/Levodopa (Sinemet Cr 50-200 Mg) 1 tab PO BEDTIME [facility] Carbidopa/Levodopa (Sinemet 25-250 Mg) 2 tab PO QID [facility] Clopidogrel Bisulfate (Plavix) 75 mg PO DAILY [facility] Duloxetine HCl (Cymbalta) 90 mg PO BEDTIME [facility] Furosemide (Lasix) 20 mg IVPUSH ONETIME ONE Stop: 09/09/20 23:01 Last Admin: 09/09/20 23:18 Dose: 20 mg Documented by: Guaifenesin/Dextromethorphan (Robitussin Dm) 10 ml PO Q4H PRN PRN Reason: Cough Potassium Chloride/Sodium Chloride (Normal Saline With 20 Meq Kcl) 1,000 mls @ 500 mls/hr IV ASDIRECTED [facility] Last Admin: 09/09/20 14:06 Dose: 500 mls/hr Documented by: Sodium Chloride (Normal Saline) 100 mls @ 3.5 mls/sec IV ASDIRECTED [facility] Stop: 09/09/20 14:31 Last Admin: 09/09/20 15:36 Dose: 4 mls/sec Documented by: Ceftriaxone Sodium 1 gm/ (Sodium Chloride) 50 mls @ 100 mls/hr IV Q24H [facility] Last Admin: 09/09/20 19:38 Dose: 100 mls/hr Documented by: Acetaminophen 1,000 mg/ Premix 100 mls @ 400 mls/hr IV Q6H [facility] Stop: 09/11/20 06:01 Last Admin: 09/10/20 05:00 Dose: 400 mls/hr Documented by: Acetaminophen 1,000 mg/ Premix 100 mls @ 400 mls/hr IV NOW ONE Stop: 09/10/20 00:59 Last Admin: 09/10/20 01:00 Dose: 400 mls/hr Documented by: Iopamidol (Isovue-370 (76%)) 100 ml IV . DIRECTED [facility] Stop: 09/09/20 20:00 Last Admin: 09/09/20 15:36 Dose: 100 ml Documented by: Lactobacillus Rhamnosus (Culturelle) 1 cap PO BID [facility] Lorazepam (Ativan) 0.5 mg PO Q4H PRN PRN Reason: Anxiety Lorazepam (Ativan) 0.5 mg IVPUSH Q4H PRN PRN Reason: Anxiety Last Admin: 09/09/20 20:20 Dose: 0.5 mg Documented by: Magnesium Hydroxide (Milk Of Magnesia) 30 ml PO Q12H PRN PRN Reason: Constipation Magnesium Oxide (Magnesium Oxide) 400 mg PO DAILY [facility] Melatonin (Melatonin) 9 mg PO BEDTIME [facility] Meloxicam (Mobic) 15 mg PO DAILY [facility] Memantine (Namenda) 10 mg PO BID [facility] Methylprednisolone Sodium Succinate (Solu-Medrol) 125 mg IVPUSH ONETIME ONE Stop: 09/09/20 21:01 Last Admin: 09/09/20 20:41 Dose: 125 mg Documented by: Midodrine (Midodrine) 5 mg PO TID [facility] Mirtazapine (Remeron) 30 mg PO BEDTIME [facility] Morphine Sulfate (Morphine) 4 mg IVPUSH Q2H PRN PRN Reason: air hunger Last Admin: 09/09/20 21:10 Dose: 4 mg Documented by: Ondansetron HCl (Zofran Odt) 4 mg PO Q6H PRN PRN Reason: Nausea able to take PO Oxycodone HCl (Oxycodone) 5 mg PO Q4H PRN PRN Reason: Pain (moderate 4-6) Pantoprazole Sodium (Protonix) 40 mg PO ACBREAKFAST [facility] Potassium Chloride (Potassium Chloride) 40 meq PO ONETIME ONE Stop: 09/09/20 13:21 Last Admin: 09/09/20 13:49 Dose: 40 meq Documented by: Senna/Docusate Sodium (Senna Plus) 1 tab PO BID PRN PRN Reason: Constipation Sodium Chloride (Saline Flush) 10 ml FLUSH ONETIME ONE Stop: 09/09/20 14:28 Last Admin: 09/09/20 15:36 Dose: 10 ml Documented by: Tamsulosin HCl (Flomax) 0.4 mg PO DAILY [facility] - Exam Quality Assessment: Supplemental Oxygen General: Alert, Mild Distress. No: Oriented, Cooperative Lungs: Crackles (right lower and mid lung ). No: Normal Respiratory Effort (increased work of breathing ), Wheezing Cardiovascular: Regular Rate, Regular Rhythm GI/Abdominal Exam: Soft, No Distention, Tender. No: Normal Bowel Sounds (hypoactive ) Extremities: No Pedal Edema. No: Increased Warmth Skin: Warm, Dry Psy/Mental Status: Alert, Agitated Sepsis Event Note - Evaluation Sepsis Screening Result: Severe Sepsis Risk - Focused Exam Vital Signs: Vital Signs Temp Pulse Resp BP Pulse Ox 09/10/20 07:34 35 C L 67 138/80 94 L 09/10/20 04:45 35.1 C L 15 138/80 93 L 09/10/20 02:59 13 128/68 95 09/10/20 00:18 36.3 C 28 H 139/115 H 93 L 09/09/20 23:34 30 H 144/126 H 85 L 09/09/20 22:27 37.4 C 30 H 131/70 97 - Problem List & Annotations (1) Right lower lobe pneumonia SNOMED Code(s): 986563107 Code(s): J18.9 - PNEUMONIA, UNSPECIFIED ORGANISM Status: Acute Current Visit: Yes Qualifiers: Pneumonia type: aspiration pneumonia Aspiration pneumonia type: due to gastric secretions Qualified Code(s): J69.0 - Pneumonitis due to inhalation of food and vomit (2) Parkinson's disease SNOMED Code(s): 35590960 Code(s): G20 - PARKINSON'S DISEASE Status: Chronic Current Visit: Yes (3) COPD (chronic obstructive pulmonary disease) SNOMED Code(s): 65484896 Code(s): J44.9 - CHRONIC OBSTRUCTIVE PULMONARY DISEASE, UNSPECIFIED Status: Chronic Current Visit: Yes Qualifiers: Emphysema type: unspecified - Problem List Review Problem List Initiated/Reviewed/Updated: Yes - My Orders Last 24 Hours: My Active Orders 09/09/20 18:30 Resuscitation Status Routine 09/09/20 19:19 Albuterol [Proventil Neb Soln] 2.5 mg NEB Q4H PRN Benzonatate [Tessalon Perles] 100 mg PO TID PRN Ondansetron [Zofran] 4 mg IV Q6H PRN 09/09/20 19:19 Patient Status [ADT] Routine Intake and Output [RC] QSHIFT Notify Provider Vital Signs [RC] ASDIRECTED Oxygen Therapy [RC] PRN Pulse Oximetry [RC] CONTINUOUS RT Aerosol Therapy [RC] ASDIRECTED Up With Assistance [RC] ASDIRECTED VTE/DVT Education [RC] Per Unit Routine Vital Signs [RC] Q2H Sequential Compression Device [OM.PC] Routine 09/09/20 20:10 Ketorolac [Toradol] 15 mg IVPUSH Q6H PRN 09/09/20 21:00 Albuterol/Ipratropium [DuoNeb 3.0-0.5 MG/3 ML] 3 ml NEB QIDRT 09/09/20 21:02 BIPAP Adult [RT BiPAP/CPAP] [RC] ASDIRECTED 09/09/20 22:00 Meropenem [Merrem] 1 gm Sodium Chloride 0.9% [Normal Saline] 100 ml IV Q8H 09/09/20 22:11 LORazepam [Ativan] 0.5 mg IVPUSH Q2H PRN Morphine 4 mg IVPUSH Q1H PRN 09/09/20 23:14 Urinary Catheter Assessment [RC] ASDIRECTED 09/10/20 05:00 methylPREDNISolone Sod Succ [Solu-MEDROL] 62.5 mg IVPUSH Q8H 09/10/20 07:53 Capsaicin [Zostrix 0.025% Crm] 0 gm TOP BID PRN 09/10/20 Breakfast NPO Now [Nothing per Oral Now Diet] [DIET] Mometasone/Formoterol [Dulera 200-5 MCG] 0 puff IH BIDRT 09/10/20 08:26 Admission Status [Patient Status] [ADT] Routine 09/10/20 09:06 Cardiac Monitoring [RC] .As Directed 09/10/20 09:10 Acetaminophen [Tylenol] 650 mg RECTAL Q4H PRN 09/10/20 09:15 Levofloxacin/Dextrose 5%-Water [Levaquin in D5W 750 MG/150 ML] 750 mg Premix Bag 1 bag IV Q24H 09/10/20 23:15 Insert Grant Catheter [Insert Urinary Catheter] [OM.PC] Q24H 09/11/20 05:00 BASIC METABOLIC PANEL,BMP [CHEM] Timed C-REACTIVE PROTEIN [CHEM] Timed CBC W/O DIFF,HEMOGRAM [HEME] Timed (1) DD [D-DIMER QUANTITATIVE] [COAG] Timed MAGNESIUM [CHEM] Timed - Plan Plan:: ASSESSMENT AND PLAN - Right lower lobe aspiration pneumonia-declining respiratory status overnight. Now stable with NIPPV and some sedation. Oxygenation is good. Febrile last night but not today. Seems to be stable for the time being. -Antibiotic coverage with levofloxacin and meropenem -Continue NIPPV -Continue IV steroids -Supplement oxygen if needed -Scheduled and as needed nebulizers -Symptomatic management of the cough -Speech pathology evaluation once stable COPD-this has been stable. No evidence for exacerbation at this time. No wheezing. -Continue home medications Parkinson's disease-tremor was better today. -Continue home medications Maintenance issues - - DVT prophylaxis -enoxaparin until he can resume his aspirin - GI prophylaxis -PPI - Nutrition -nothing by mouth - Grant catheter -not indicated CODE STATUS -DNR/DNI Admission justification -this patient will be admitted for inpatient services and is medically appropriate meeting medical necessity for inpatient admission as outlined in my documentation. I reasonably expect the patient will require inpatient services that span a period time over 2 midnights. I reasonably expect this patient to be discharged or transferred within 96 hours [facility]. Aspiration pneumonia with hypoxic respiratory failure Disposition -I would anticipate discharge back to the group home after the hospital stay Shabbir Dunn M.D.
--- NOTE | 2020-09-10 09:14 | CR ---
CHEST: Portable 09/10/2020 at 1253 a.m. CLINICAL HISTORY:Fever COMPARISON:None FINDINGS: There is patchy right lower lobe pneumonic infiltrate. There is also patchy density in the left lower lobe likely of similar etiology. Heart size and pulmonary vascular are normal. There are atherosclerotic changes in the aorta.. IMPRESSION: Bilateral lower lobe pneumonic infiltrates.
--- NOTE | 2020-09-10 09:18 | CR ---
Abdomen 1V Flat CLINICAL HISTORY: Abdominal pain FINDINGS: There is gaseous distention of small bowel loops throughout the mid abdomen. There is gas and feces throughout the colon. Patient has had a previous intertrochanteric fracture of the right femur. There is a compression screw in place and an intramedullary ирина. Chronology is uncertain. Fracture lines in the impression that this is subacute. IMPRESSION: Small bowel gaseous distention. This may represent ileus Previous right femoral intertrochanteric fracture with open reduction. It appears subacute. Clinical correlation necessary
[2020-09-10] MEDS ORDERED: Carbidopa/Levodopa 25-250 MG Tab PO SCH (10:00)
[2020-09-10] MEDS: Levofloxacin/Dextrose 5%-Water 750 MG in Premix Bag 1 BAG IV SCH (10:07)
[2020-09-10] MEDS: Formoterol/Mometasone 200-5 MCG 8.8 GM Inhaler IH SCH ×2 (10:10→21:42)
[2020-09-10] MEDS: Enoxaparin 40 MG/0.4 ML Syringe SUBCUT SCH (18:06)
[2020-09-10] MEDS ORDERED: atorvaSTATin 20 MG Tab PO SCH (21:00)
[2020-09-10] MEDS ORDERED: Carbidopa/Levodopa 50-200 MG Tab.ER PO SCH (21:00)
[2020-09-10] MEDS ORDERED: Mirtazapine 15 MG Tab PO SCH (21:00)
[2020-09-10] MEDS ORDERED: DULoxetine 30 MG Cap PO SCH (21:00)
[2020-09-11] MEDS: Morphine 4 MG/ML Syringe IVPUSH PRN ×13 (00:47→23:09)
[2020-09-11] MEDS: methylPREDNISolone Sodium Succinate 125 MG/2 ML SDV IVPUSH SCH ×3 (05:17→22:03)
[2020-09-11] MEDS: Meropenem 1 GM in Sodium Chloride 0.9% 100 ML IV SCH ×3 (06:00→22:03)
[2020-09-11] MEDS: Formoterol/Mometasone 200-5 MCG 8.8 GM Inhaler IH SCH ×2 (07:10→20:08)
[2020-09-11] MEDS: Albuterol/Ipratropium 3.0-0.5 MG/3 ML Neb Soln NEB SCH ×4 (07:10→22:03)
[2020-09-11] MEDS: LORazepam 2 MG/ML SDV IVPUSH PRN ×4 (08:10→16:15)
[2020-09-11] MEDS ORDERED: LORazepam 2 MG/ML SDV IVPUSH ONE (08:45)
--- NOTE | 2020-09-11 09:57 | PCM.PN ---
- General Info Date of Service: 09/11/20 Subjective Update: There were no acute events overnight. The patient has rested fairly well with the noninvasive ventilation. He does require fairly regular use of both morphine and lorazepam to help keep him relaxed. He is quite anxious when he is awake. He continues to be confused and cannot tell us why he is so anxious. Oxygenation has been excellent. Blood pressure and heart rate have been stable. No fevers. Functional Status: Reports: Pain Controlled - Review of Systems General: Denies: Fever Pulmonary: Reports: Shortness of Breath Psychiatric: Reports: Confusion - Patient Data Vitals - Most Recent: Last Vital Signs Temp 36.0 C L 09/11/20 08:00 Pulse 69 09/11/20 08:00 Resp 18 09/11/20 08:00 BP 135/81 09/11/20 06:00 Pulse Ox 97 09/11/20 08:00 Weight - Most Recent: 85.729 kg I&O - Last 24 Hours: Intake & Output 09/10/20 09/11/20 09/11/20 22:59 06:59 14:59 Intake Total 100 Output Total 400 400 Balance -400 -300 Lab Results Last 24 Hours: Laboratory Results - last 24 hr 09/11/20 09/11/20 09/11/20 Range/Units 05:40 05:40 05:40 WBC 15.5 H (4.5-11.0) K/uL RBC 4.21 L (4.30-5.90) M/uL Hgb 12.1 (12.0-15.0) g/dL Hct 40.8 (40.0-54.0) % MCV 97 (80-98) fL MCH 29 (27-31) pg MCHC 30 L (32-36) % Plt Count 291 (150-400) K/uL D-Dimer, Quantitative 1667.65 H (0.0-500.0) ng/mL Sodium 144 (140-148) mmol/L Potassium 4.7 (3.6-5.2) mmol/L Chloride 109 H (100-108) mmol/L Carbon Dioxide 28 (21-32) mmol/L Anion Gap 11.7 (5.0-14.0) mmol/L BUN 31 H (7-18) mg/dL Creatinine 0.9 (0.8-1.3) mg/dL Est Cr Clr Drug Dosing 68.28 mL/min Estimated GFR (MDRD) > 60 (>60) Glucose 131 H (74-106) mg/dL Calcium 8.9 (8.5-10.1) mg/dL Magnesium 2.6 H (1.8-2.4) mg/dL C-Reactive Protein 11.37 H (0.0-0.3) mg/dL Med Orders - Current: Current Medications Acetaminophen (Tylenol) 650 mg RECTAL Q4H PRN PRN Reason: Pain/Fever Albuterol (Proventil Neb Soln) 2.5 mg NEB Q4H PRN PRN Reason: Shortness Of Breath/wheezing Albuterol/Ipratropium (Duoneb 3.0-0.5 Mg/3 Ml) 3 ml NEB QIDRT [facility] Last Admin: 09/11/20 07:10 Dose: 3 ml Documented by: Benzonatate (Tessalon Perles) 100 mg PO TID PRN PRN Reason: Cough Capsaicin (Zostrix 0.025% Crm) 0 gm TOP BID PRN PRN Reason: PAIN Enoxaparin Sodium (Lovenox) 40 mg SUBCUT Q24H [facility] Last Admin: 09/10/20 18:06 Dose: 40 mg Documented by: Meropenem 1 gm/ Sodium (Chloride) 100 mls @ 200 mls/hr IV Q8H [facility] Last Admin: 09/11/20 06:00 Dose: 200 mls/hr Documented by: Levofloxacin/Dextrose 750 mg/ (Premix) 150 mls @ 100 mls/hr IV Q24H [facility] Last Admin: 09/10/20 10:07 Dose: 100 mls/hr Documented by: Ketorolac Tromethamine (Toradol) 15 mg IVPUSH Q6H PRN PRN Reason: Pain/Fever Stop: 09/14/20 20:10 Last Admin: 09/10/20 08:42 Dose: 15 mg Documented by: Lorazepam (Ativan) 0.5 mg IVPUSH Q2H PRN PRN Reason: Anxiety Last Admin: 09/11/20 08:10 Dose: 0.5 mg Documented by: Methylprednisolone Sodium Succinate (Solu-Medrol) 62.5 mg IVPUSH Q8H [facility] Last Admin: 09/11/20 05:17 Dose: 62.5 mg Documented by: Mometasone Furoate/Formoterol Fumar (Dulera 200-5 Mcg) 0 puff IH BIDRT [facility] Last Admin: 09/11/20 07:10 Dose: 2 puff Documented by: Morphine Sulfate (Morphine) 4 mg IVPUSH Q1H PRN PRN Reason: air hunger Last Admin: 09/11/20 08:46 Dose: 4 mg Documented by: Ondansetron HCl (Zofran) 4 mg IV Q6H PRN PRN Reason: Nausea/Vomiting Discontinued Medications Acetaminophen (Tylenol) 650 mg PO Q4H PRN PRN Reason: Pain (Mild 1-3)/fever Last Admin: 09/09/20 19:36 Dose: 650 mg Documented by: Albuterol (Proventil Neb Soln) 2.5 mg NEB ONETIME ONE Stop: 09/09/20 17:55 Last Admin: 09/09/20 18:05 Dose: 2.5 mg Documented by: Alprazolam (Xanax) 0.125 mg PO NOW ONE Stop: 09/09/20 17:04 Last Admin: 09/09/20 17:11 Dose: 0.125 mg Documented by: Aspirin (Ecotrin) 325 mg PO BID [facility] Atorvastatin Calcium (Lipitor) 20 mg PO BEDTIME [facility] Azithromycin (Zithromax) 500 mg PO DAILY [facility] Last Admin: 09/09/20 17:10 Dose: 500 mg Documented by: Azithromycin (Zithromax) 250 mg PO DAILY [facility] Stop: 09/13/20 09:01 Last Admin: 09/10/20 15:47 Dose: Not Given Documented by: Carbidopa/Levodopa (Sinemet Cr 50-200 Mg) 1 tab PO BEDTIME [facility] Carbidopa/Levodopa (Sinemet 25-250 Mg) 2 tab PO QID [facility] Clopidogrel Bisulfate (Plavix) 75 mg PO DAILY [facility] Last Admin: 09/10/20 15:47 Dose: Not Given Documented by: Duloxetine HCl (Cymbalta) 90 mg PO BEDTIME [facility] Furosemide (Lasix) 20 mg IVPUSH ONETIME ONE Stop: 09/09/20 23:01 Last Admin: 09/09/20 23:18 Dose: 20 mg Documented by: Guaifenesin/Dextromethorphan (Robitussin Dm) 10 ml PO Q4H PRN PRN Reason: Cough Potassium Chloride/Sodium Chloride (Normal Saline With 20 Meq Kcl) 1,000 mls @ 500 mls/hr IV ASDIRECTED [facility] Last Admin: 09/09/20 14:06 Dose: 500 mls/hr Documented by: Sodium Chloride (Normal Saline) 100 mls @ 3.5 mls/sec IV ASDIRECTED [facility] Stop: 09/09/20 14:31 Last Admin: 09/09/20 15:36 Dose: 4 mls/sec Documented by: Ceftriaxone Sodium 1 gm/ (Sodium Chloride) 50 mls @ 100 mls/hr IV Q24H [facility] Last Admin: 09/09/20 19:38 Dose: 100 mls/hr Documented by: Acetaminophen 1,000 mg/ Premix 100 mls @ 400 mls/hr IV Q6H [facility] Stop: 09/11/20 06:01 Last Admin: 09/10/20 05:00 Dose: 400 mls/hr Documented by: Acetaminophen 1,000 mg/ Premix 100 mls @ 400 mls/hr IV NOW ONE Stop: 09/10/20 00:59 Last Admin: 09/10/20 01:00 Dose: 400 mls/hr Documented by: Iopamidol (Isovue-370 (76%)) 100 ml IV . DIRECTED [facility] Stop: 09/09/20 20:00 Last Admin: 09/09/20 15:36 Dose: 100 ml Documented by: Lactobacillus Rhamnosus (Culturelle) 1 cap PO BID [facility] Lorazepam (Ativan) 0.5 mg PO Q4H PRN PRN Reason: Anxiety Lorazepam (Ativan) 0.5 mg IVPUSH Q4H PRN PRN Reason: Anxiety Last Admin: 09/09/20 20:20 Dose: 0.5 mg Documented by: Lorazepam (Ativan) 1 mg IVPUSH ONETIME ONE Stop: 09/11/20 08:46 Last Admin: 09/11/20 08:57 Dose: 1 mg Documented by: Magnesium Hydroxide (Milk Of Magnesia) 30 ml PO Q12H PRN PRN Reason: Constipation Magnesium Oxide (Magnesium Oxide) 400 mg PO DAILY [facility] Last Admin: 09/10/20 15:46 Dose: Not Given Documented by: Melatonin (Melatonin) 9 mg PO BEDTIME [facility] Meloxicam (Mobic) 15 mg PO DAILY [facility] Last Admin: 09/10/20 15:47 Dose: Not Given Documented by: Memantine (Namenda) 10 mg PO BID [facility] Last Admin: 09/10/20 15:47 Dose: Not Given Documented by: Methylprednisolone Sodium Succinate (Solu-Medrol) 125 mg IVPUSH ONETIME ONE Stop: 09/09/20 21:01 Last Admin: 09/09/20 20:41 Dose: 125 mg Documented by: Midodrine (Midodrine) 5 mg PO TID [facility] Last Admin: 09/10/20 15:46 Dose: Not Given Documented by: Mirtazapine (Remeron) 30 mg PO BEDTIME [facility] Morphine Sulfate (Morphine) 4 mg IVPUSH Q2H PRN PRN Reason: air hunger Last Admin: 09/09/20 21:10 Dose: 4 mg Documented by: Ondansetron HCl (Zofran Odt) 4 mg PO Q6H PRN PRN Reason: Nausea able to take PO Oxycodone HCl (Oxycodone) 5 mg PO Q4H PRN PRN Reason: Pain (moderate 4-6) Pantoprazole Sodium (Protonix) 40 mg PO ACBREAKFAST [facility] Potassium Chloride (Potassium Chloride) 40 meq PO ONETIME ONE Stop: 09/09/20 13:21 Last Admin: 09/09/20 13:49 Dose: 40 meq Documented by: Senna/Docusate Sodium (Senna Plus) 1 tab PO BID PRN PRN Reason: Constipation Sodium Chloride (Saline Flush) 10 ml FLUSH ONETIME ONE Stop: 09/09/20 14:28 Last Admin: 09/09/20 15:36 Dose: 10 ml Documented by: Tamsulosin HCl (Flomax) 0.4 mg PO DAILY [facility] Last Admin: 09/10/20 15:46 Dose: Not Given Documented by: - Exam Quality Assessment: Supplemental Oxygen General: No Acute Distress, Lethargic. No: Alert Lungs: Normal Respiratory Effort, Crackles (right mid lung ), Rhonchi (right lung base). No: Wheezing Cardiovascular: Regular Rate, Regular Rhythm GI/Abdominal Exam: Normal Bowel Sounds, Soft, No Distention Extremities: No Pedal Edema. No: Increased Warmth Skin: Warm, Dry Psy/Mental Status: No: Alert, Agitated Sepsis Event Note - Evaluation Sepsis Screening Result: Severe Sepsis Risk - Focused Exam Vital Signs: Vital Signs Temp Pulse Resp BP Pulse Ox 09/11/20 08:00 36.0 C L 69 18 97 09/11/20 07:11 68 09/11/20 06:00 12 135/81 96 09/11/20 04:00 11 L 159/78 H 97 09/11/20 02:00 10 L 138/73 98 09/11/20 00:00 16 140/72 99 09/10/20 22:00 14 135/50 L 95 - Problem List & Annotations (1) Right lower lobe pneumonia SNOMED Code(s): 011848468 Code(s): J18.9 - PNEUMONIA, UNSPECIFIED ORGANISM Status: Acute Current Visit: Yes Qualifiers: Pneumonia type: aspiration pneumonia Aspiration pneumonia type: due to gastric secretions Qualified Code(s): J69.0 - Pneumonitis due to inhalation of food and vomit (2) Parkinson's disease SNOMED Code(s): 22987828 Code(s): G20 - PARKINSON'S DISEASE Status: Chronic Current Visit: Yes (3) COPD (chronic obstructive pulmonary disease) SNOMED Code(s): 88928831 Code(s): J44.9 - CHRONIC OBSTRUCTIVE PULMONARY DISEASE, UNSPECIFIED Status: Chronic Current Visit: Yes Qualifiers: Emphysema type: unspecified - Problem List Review Problem List Initiated/Reviewed/Updated: Yes - My Orders Last 24 Hours: My Active Orders 09/10/20 09:06 Cardiac Monitoring [RC] Q6H 09/10/20 09:10 Acetaminophen [Tylenol] 650 mg RECTAL Q4H PRN 09/10/20 10:00 Levofloxacin/Dextrose 5%-Water [Levaquin in D5W 750 MG/150 ML] 750 mg Premix Bag 1 bag IV Q24H 09/10/20 18:00 Enoxaparin [Lovenox] 40 mg SUBCUT Q24H 09/10/20 23:15 Insert Grant Catheter [Insert Urinary Catheter] [OM.PC] Q24H 09/12/20 05:00 BASIC METABOLIC PANEL,BMP [CHEM] Timed BLOOD GAS ARTERIAL [BG] Timed CBC W/O DIFF,HEMOGRAM [HEME] Timed (1) - Plan Plan:: ASSESSMENT AND PLAN - Right lower lobe aspiration pneumonia-declining respiratory has stabilized with the use of noninvasive ventilation. Seems to be a little bit better today than yesterday. Still a fair amount of agitation without regular use of pain and anxiety medications. -Antibiotic coverage with levofloxacin and meropenem -Continue NIPPV -Continue IV steroids -Supplement oxygen if needed -Scheduled and as needed nebulizers -Symptomatic management of the cough -Speech pathology evaluation once stable Possible dysphagia-concern for aspiration as discussed above. Patient is too sick for speech path evaluation at this time. -N.p.o. status for now -Speech pathology evaluation when he is more alert COPD-this has been stable. No evidence for exacerbation at this time. No wheezing. -Continue home medications Parkinson's disease-tremor was better today. -Continue home medications (on hold because he cannot swallow any pills) Maintenance issues - - DVT prophylaxis -enoxaparin until he can resume his aspirin - GI prophylaxis -PPI - Nutrition -nothing by mouth - Grant catheter -placed for strict intake and output monitoring in a critical patient Disposition -I would anticipate discharge back to the skilled nursing after the hospital stay Shabbir Dunn M.D.
[2020-09-11] MEDS: Levofloxacin/Dextrose 5%-Water 750 MG in Premix Bag 1 BAG IV SCH (10:55)
[2020-09-11] MEDS ORDERED: Haloperidol Lactate 5 MG/ML SDV IVPUSH PRN (13:59)
[2020-09-11] MEDS: Enoxaparin 40 MG/0.4 ML Syringe SUBCUT SCH (18:46)
[2020-09-11] MEDS: Haloperidol Lactate 5 MG/ML SDV IVPUSH PRN ×2 (19:33→23:09)
[2020-09-12] MEDS: Morphine 4 MG/ML Syringe IVPUSH PRN ×4 (00:11→06:00)
[2020-09-12] MEDS: methylPREDNISolone Sodium Succinate 125 MG/2 ML SDV IVPUSH SCH (04:24)
[2020-09-12] MEDS: Haloperidol Lactate 5 MG/ML SDV IVPUSH PRN ×3 (05:01→22:16)
[2020-09-12] MEDS: Meropenem 1 GM in Sodium Chloride 0.9% 100 ML IV SCH ×3 (05:01→22:08)
[2020-09-12] MEDS: Albuterol/Ipratropium 3.0-0.5 MG/3 ML Neb Soln NEB SCH ×4 (07:39→21:02)
[2020-09-12] MEDS: Formoterol/Mometasone 200-5 MCG 8.8 GM Inhaler IH SCH ×2 (07:40→21:02)
[2020-09-12] MEDS ORDERED: Valproate Sodium 500 MG in Sodium Chloride 0.9% 100 ML IV ONE (10:30)
--- NOTE | 2020-09-12 10:34 | PCM.PN ---
- General Info Date of Service: 09/12/20 Subjective Update: No acute events overnight but the patient does remain quite agitated. His respiratory status seems a little bit more stable today but he is still in a hyperactive delirium. I am not able to get any sort of usable history out of him. He appears uncomfortable but is not able to localize any sort of pain or discomfort. He has not had any fevers. He has been off noninvasive ventilation and his oxygenation has been good with just a nasal cannula. He is making urine. Vital signs are otherwise stable. - Review of Systems General: Denies: Fever Pulmonary: Reports: Shortness of Breath Psychiatric: Reports: Confusion - Patient Data Vitals - Most Recent: Last Vital Signs Temp 35.8 C L 09/12/20 07:37 Pulse 64 09/12/20 07:40 Resp 18 09/12/20 07:37 BP 152/58 H 09/12/20 07:37 Pulse Ox 94 L 09/12/20 08:12 Weight - Most Recent: 85.729 kg I&O - Last 24 Hours: Intake & Output 09/11/20 09/12/20 09/12/20 22:59 06:59 14:59 Intake Total 0 200 Output Total 350 350 Balance -350 -150 Lab Results Last 24 Hours: Laboratory Results - last 24 hr 09/12/20 09/12/20 09/12/20 Range/Units 04:30 04:30 04:45 WBC 18.1 H (4.5-11.0) K/uL RBC 4.16 L (4.30-5.90) M/uL Hgb 12.5 (12.0-15.0) g/dL Hct 39.9 L (40.0-54.0) % MCV 96 (80-98) fL MCH 30 (27-31) pg MCHC 31 L (32-36) % Plt Count 303 (150-400) K/uL Puncture Site L radial ABG pH 7.387 (7.350-7.450) ABG pCO2 48.7 H (35.0-42.0) mmHg ABG pO2 74.4 L (75.0-100.0) mmHg ABG HCO3 28.6 H (22.0-26.0) mmol/L ABG Total CO2 25.8 (23.0-27.0) mmol/L ABG O2 Saturation 94.3 L (95.0-98.0) % ABG O2 Content 16.5 (15.0-23.0) %vol ABG Base Excess 3.3 mm/L ABG Hemoglobin 12.7 L (13.5-18.0) g/dL ABG Oxyhemoglobin 92.4 % ABG Carboxyhemoglobin 0.9 (0.0-1.6) % ABG Methemoglobin 1.1 % Matt Test Ok O2 Delivery Device Bipap Oxygen Flow Rate L Sodium 147 (140-148) mmol/L Potassium 4.5 (3.6-5.2) mmol/L Chloride 110 H (100-108) mmol/L Carbon Dioxide 29 (21-32) mmol/L Anion Gap 12.5 (5.0-14.0) mmol/L BUN 37 H (7-18) mg/dL Creatinine 0.9 (0.8-1.3) mg/dL Est Cr Clr Drug Dosing 68.28 mL/min Estimated GFR (MDRD) > 60 (>60) Glucose 148 H (74-106) mg/dL Calcium 9.4 (8.5-10.1) mg/dL Med Orders - Current: Current Medications Acetaminophen (Tylenol) 650 mg RECTAL Q4H PRN PRN Reason: Pain/Fever Albuterol (Proventil Neb Soln) 2.5 mg NEB Q4H PRN PRN Reason: Shortness Of Breath/wheezing Albuterol/Ipratropium (Duoneb 3.0-0.5 Mg/3 Ml) 3 ml NEB QIDRT [facility] Last Admin: 09/12/20 07:39 Dose: 3 ml Documented by: Benzonatate (Tessalon Perles) 100 mg PO TID PRN PRN Reason: Cough Capsaicin (Zostrix 0.025% Crm) 0 gm TOP BID PRN PRN Reason: PAIN Enoxaparin Sodium (Lovenox) 40 mg SUBCUT Q24H [facility] Last Admin: 09/11/20 18:46 Dose: 40 mg Documented by: Haloperidol Lactate (Haldol) 5 mg IVPUSH Q4H PRN PRN Reason: Agitation Last Admin: 09/12/20 05:01 Dose: 5 mg Documented by: Meropenem 1 gm/ Sodium (Chloride) 100 mls @ 200 mls/hr IV Q8H [facility] Last Admin: 09/12/20 05:01 Dose: 200 mls/hr Documented by: Levofloxacin/Dextrose 750 mg/ (Premix) 150 mls @ 100 mls/hr IV Q24H [facility] Last Admin: 09/11/20 10:55 Dose: 100 mls/hr Documented by: Valproic Acid 500 mg/ Sodium (Chloride) 105 mls @ 105 mls/hr IV ONETIME ONE Stop: 09/12/20 11:29 Ketorolac Tromethamine (Toradol) 15 mg IVPUSH Q6H PRN PRN Reason: Pain/Fever Stop: 09/14/20 20:10 Last Admin: 09/10/20 08:42 Dose: 15 mg Documented by: Lorazepam (Ativan) 1 mg IVPUSH Q2H PRN PRN Reason: Anxiety Last Admin: 09/11/20 16:15 Dose: 1 mg Documented by: Methylprednisolone Sodium Succinate (Solu-Medrol) 62.5 mg IVPUSH Q8H [facility] Last Admin: 09/12/20 04:24 Dose: 62.5 mg Documented by: Mometasone Furoate/Formoterol Fumar (Dulera 200-5 Mcg) 0 puff IH BIDRT [facility] Last Admin: 09/12/20 07:40 Dose: 2 puff Documented by: Morphine Sulfate (Morphine) 8 mg IVPUSH Q1H PRN PRN Reason: air hunger Ondansetron HCl (Zofran) 4 mg IV Q6H PRN PRN Reason: Nausea/Vomiting Discontinued Medications Acetaminophen (Tylenol) 650 mg PO Q4H PRN PRN Reason: Pain (Mild 1-3)/fever Last Admin: 09/09/20 19:36 Dose: 650 mg Documented by: Albuterol (Proventil Neb Soln) 2.5 mg NEB ONETIME ONE Stop: 09/09/20 17:55 Last Admin: 09/09/20 18:05 Dose: 2.5 mg Documented by: Alprazolam (Xanax) 0.125 mg PO NOW ONE Stop: 09/09/20 17:04 Last Admin: 09/09/20 17:11 Dose: 0.125 mg Documented by: Aspirin (Ecotrin) 325 mg PO BID [facility] Atorvastatin Calcium (Lipitor) 20 mg PO BEDTIME [facility] Azithromycin (Zithromax) 500 mg PO DAILY [facility] Last Admin: 09/09/20 17:10 Dose: 500 mg Documented by: Azithromycin (Zithromax) 250 mg PO DAILY [facility] Stop: 09/13/20 09:01 Last Admin: 09/10/20 15:47 Dose: Not Given Documented by: Carbidopa/Levodopa (Sinemet Cr 50-200 Mg) 1 tab PO BEDTIME [facility] Carbidopa/Levodopa (Sinemet 25-250 Mg) 2 tab PO QID [facility] Clopidogrel Bisulfate (Plavix) 75 mg PO DAILY [facility] Last Admin: 09/10/20 15:47 Dose: Not Given Documented by: Duloxetine HCl (Cymbalta) 90 mg PO BEDTIME [facility] Furosemide (Lasix) 20 mg IVPUSH ONETIME ONE Stop: 09/09/20 23:01 Last Admin: 09/09/20 23:18 Dose: 20 mg Documented by: Guaifenesin/Dextromethorphan (Robitussin Dm) 10 ml PO Q4H PRN PRN Reason: Cough Haloperidol Lactate (Haldol) 2.5 mg IVPUSH Q4H PRN PRN Reason: Agitation Last Admin: 09/11/20 14:12 Dose: 2.5 mg Documented by: Potassium Chloride/Sodium Chloride (Normal Saline With 20 Meq Kcl) 1,000 mls @ 500 mls/hr IV ASDIRECTED [facility] Last Admin: 09/09/20 14:06 Dose: 500 mls/hr Documented by: Sodium Chloride (Normal Saline) 100 mls @ 3.5 mls/sec IV ASDIRECTED [facility] Stop: 09/09/20 14:31 Last Admin: 09/09/20 15:36 Dose: 4 mls/sec Documented by: Ceftriaxone Sodium 1 gm/ (Sodium Chloride) 50 mls @ 100 mls/hr IV Q24H [facility] Last Admin: 09/09/20 19:38 Dose: 100 mls/hr Documented by: Acetaminophen 1,000 mg/ Premix 100 mls @ 400 mls/hr IV Q6H [facility] Stop: 09/11/20 06:01 Last Admin: 09/10/20 05:00 Dose: 400 mls/hr Documented by: Acetaminophen 1,000 mg/ Premix 100 mls @ 400 mls/hr IV NOW ONE Stop: 09/10/20 00:59 Last Admin: 09/10/20 01:00 Dose: 400 mls/hr Documented by: Iopamidol (Isovue-370 (76%)) 100 ml IV . DIRECTED [facility] Stop: 09/09/20 20:00 Last Admin: 09/09/20 15:36 Dose: 100 ml Documented by: Lactobacillus Rhamnosus (Culturelle) 1 cap PO BID [facility] Lorazepam (Ativan) 0.5 mg PO Q4H PRN PRN Reason: Anxiety Lorazepam (Ativan) 0.5 mg IVPUSH Q4H PRN PRN Reason: Anxiety Last Admin: 09/09/20 20:20 Dose: 0.5 mg Documented by: Lorazepam (Ativan) 0.5 mg IVPUSH Q2H PRN PRN Reason: Anxiety Last Admin: 09/11/20 12:54 Dose: 0.5 mg Documented by: Lorazepam (Ativan) 1 mg IVPUSH ONETIME ONE Stop: 09/11/20 08:46 Last Admin: 09/11/20 08:57 Dose: 1 mg Documented by: Magnesium Hydroxide (Milk Of Magnesia) 30 ml PO Q12H PRN PRN Reason: Constipation Magnesium Oxide (Magnesium Oxide) 400 mg PO DAILY [facility] Last Admin: 09/10/20 15:46 Dose: Not Given Documented by: Melatonin (Melatonin) 9 mg PO BEDTIME [facility] Meloxicam (Mobic) 15 mg PO DAILY [facility] Last Admin: 09/10/20 15:47 Dose: Not Given Documented by: Memantine (Namenda) 10 mg PO BID [facility] Last Admin: 09/10/20 15:47 Dose: Not Given Documented by: Methylprednisolone Sodium Succinate (Solu-Medrol) 125 mg IVPUSH ONETIME ONE Stop: 09/09/20 21:01 Last Admin: 09/09/20 20:41 Dose: 125 mg Documented by: Midodrine (Midodrine) 5 mg PO TID [facility] Last Admin: 09/10/20 15:46 Dose: Not Given Documented by: Mirtazapine (Remeron) 30 mg PO BEDTIME [facility] Morphine Sulfate (Morphine) 4 mg IVPUSH Q2H PRN PRN Reason: air hunger Last Admin: 09/09/20 21:10 Dose: 4 mg Documented by: Morphine Sulfate (Morphine) 4 mg IVPUSH Q1H PRN PRN Reason: air hunger Last Admin: 09/11/20 13:53 Dose: 4 mg Documented by: Morphine Sulfate (Morphine) 8 mg IVPUSH Q1H PRN PRN Reason: air hunger Last Admin: 09/12/20 06:00 Dose: 8 mg Documented by: Ondansetron HCl (Zofran Odt) 4 mg PO Q6H PRN PRN Reason: Nausea able to take PO Oxycodone HCl (Oxycodone) 5 mg PO Q4H PRN PRN Reason: Pain (moderate 4-6) Pantoprazole Sodium (Protonix) 40 mg PO ACBREAKFAST [facility] Potassium Chloride (Potassium Chloride) 40 meq PO ONETIME ONE Stop: 09/09/20 13:21 Last Admin: 09/09/20 13:49 Dose: 40 meq Documented by: Senna/Docusate Sodium (Senna Plus) 1 tab PO BID PRN PRN Reason: Constipation Sodium Chloride (Saline Flush) 10 ml FLUSH ONETIME ONE Stop: 09/09/20 14:28 Last Admin: 09/09/20 15:36 Dose: 10 ml Documented by: Tamsulosin HCl (Flomax) 0.4 mg PO DAILY [facility] Last Admin: 09/10/20 15:46 Dose: Not Given Documented by: - Exam Quality Assessment: Supplemental Oxygen General: Alert, Mild Distress. No: Oriented, Cooperative HEENT: Pupils Equal Lungs: Normal Respiratory Effort, Crackles (mild left lung base), Rhonchi (moderate right lower lung ) Cardiovascular: Regular Rate, Regular Rhythm GI/Abdominal Exam: Soft, No Distention Extremities: No Pedal Edema. No: Increased Warmth Skin: Warm, Dry Psy/Mental Status: Alert, Agitated Sepsis Event Note - Evaluation Sepsis Screening Result: Sepsis Risk - Focused Exam Vital Signs: Vital Signs Temp Pulse Resp BP Pulse Ox 09/12/20 08:12 94 L 09/12/20 07:40 64 09/12/20 07:37 35.8 C L 61 18 152/58 H 94 L 09/12/20 06:00 68 22 H 113/92 H 96 09/12/20 05:00 37.3 C 80 14 111/57 L 96 09/12/20 02:40 67 22 H 116/59 L 98 09/12/20 00:37 62 22 H 147/58 H 94 L 09/11/20 23:00 71 27 H 126/69 92 L - Problem List & Annotations (1) Right lower lobe pneumonia SNOMED Code(s): 950658889 Code(s): J18.9 - PNEUMONIA, UNSPECIFIED ORGANISM Status: Acute Current Visit: Yes Qualifiers: Pneumonia type: aspiration pneumonia Aspiration pneumonia type: due to g astric secretions Qualified Code(s): J69.0 - Pneumonitis due to inhalation of food and vomit (2) Parkinson's disease SNOMED Code(s): 96202306 Code(s): G20 - PARKINSON'S DISEASE Status: Chronic Current Visit: Yes (3) COPD (chronic obstructive pulmonary disease) SNOMED Code(s): 69396984 Code(s): J44.9 - CHRONIC OBSTRUCTIVE PULMONARY DISEASE, UNSPECIFIED Status: Chronic Current Visit: Yes Qualifiers: Emphysema type: unspecified - Problem List Review Problem List Initiated/Reviewed/Updated: Yes - My Orders Last 24 Hours: My Active Orders 09/11/20 14:15 LORazepam [Ativan] 1 mg IVPUSH Q2H PRN 09/11/20 16:30 Haloperidol Lactate [Haldol] 5 mg IVPUSH Q4H PRN 09/12/20 07:16 Morphine 8 mg IVPUSH Q1H PRN 09/12/20 10:30 Valproate Sodium [Depacon] 500 mg Sodium Chloride 0.9% [Normal Saline] 100 ml IV ONETIME 09/12/20 10:45 Dextrose 5%-1/2 Normal Saline with KCl 20 mEq @ 75 mL/Hr (1000 mL) D5 1/2 NS w/ 20 mEq/L KCl 1,000 ml IV ASDIRECTED 09/12/20 13:00 methylPREDNISolone Sod Succ [Solu-MEDROL] 40 mg IVPUSH Q8H 09/12/20 23:15 Insert Grant Catheter [Insert Urinary Catheter] [OM.PC] Q24H 09/13/20 05:00 BASIC METABOLIC PANEL,BMP [CHEM] Timed BLOOD GAS ARTERIAL [BG] Timed CBC W/O DIFF,HEMOGRAM [HEME] Timed (1) - Plan Plan:: ASSESSMENT AND PLAN - Right lower lobe aspiration pneumonia-respiratory status seems to have stabilized and probably improved a little bit. Blood gases this morning did show mild CO2 retention. No fevers. He does continue to require supplemental oxygen. -Antibiotic coverage with levofloxacin and meropenem -Continue NIPPV -Continue IV steroids with decrease in dose -Supplement oxygen if needed -Scheduled and as needed nebulizers -Symptomatic management of the cough -Speech pathology evaluation once stable Hyperactive delirium-probably related to the aspiration pneumonia with potential contribution from the steroids. We have tried a variety of medications without much benefit. -Trial of IV valproate -Consider IV/IM Benadryl -Treat air hunger related to above Possible dysphagia-concern for aspiration as discussed above. Patient is too sick for speech path evaluation at this time. -N.p.o. status for now -Speech pathology evaluation when he is more alert COPD-this has been stable. No evidence for exacerbation at this time. No wheezing. -Continue home medications Parkinson's disease-tremor was better today. -Continue home medications (on hold because he cannot swallow any pills) Maintenance issues - - DVT prophylaxis -enoxaparin until he can resume his aspirin - GI prophylaxis -PPI - Nutrition -nothing by mouth - Grant catheter -removed today Disposition -I would anticipate discharge back to the skilled nursing after the hospital stay Shabbir Dunn M.D.
[2020-09-12] MEDS ORDERED: D5 1/2 NS w/ 20 mEq/L KCl 1,000 ML IV SCH (10:45)
[2020-09-12] MEDS: Ketorolac 30 MG/ML SDV IVPUSH PRN (12:19)
[2020-09-12] MEDS: methylPREDNISolone Sodium Succinate 40 MG/1 ML SDV IVPUSH SCH ×2 (12:19→19:52)
[2020-09-12] MEDS: Levofloxacin/Dextrose 5%-Water 750 MG in Premix Bag 1 BAG IV SCH (12:20)
[2020-09-12] MEDS ORDERED: LORazepam 2 MG/ML SDV IM ONE (14:32)
[2020-09-12] MEDS: Enoxaparin 40 MG/0.4 ML Syringe SUBCUT SCH (17:20)
[2020-09-12] MEDS: diphenhydrAMINE 50 MG/ML SDV IV PRN (17:21)
[2020-09-12] MEDS: Morphine 10 MG/ML Syringe IVPUSH PRN ×3 (18:20→22:33)
[2020-09-12] MEDS ORDERED: OLANZapine 10 MG Vial IM ONE (18:49)
[2020-09-12] MEDS: LORazepam 2 MG/ML SDV IVPUSH PRN (22:33)
[2020-09-13] MEDS: Morphine 10 MG/ML Syringe IVPUSH PRN ×9 (00:04→23:34)
[2020-09-13] MEDS: diphenhydrAMINE 50 MG/ML SDV IV PRN ×2 (00:05→10:49)
[2020-09-13] MEDS: LORazepam 2 MG/ML SDV IVPUSH PRN ×4 (01:21→21:30)
[2020-09-13] MEDS: Haloperidol Lactate 5 MG/ML SDV IVPUSH PRN ×2 (02:53→12:40)
[2020-09-13] MEDS: methylPREDNISolone Sodium Succinate 40 MG/1 ML SDV IVPUSH SCH ×3 (02:53→19:26)
[2020-09-13] MEDS: Meropenem 1 GM in Sodium Chloride 0.9% 100 ML IV SCH ×3 (05:45→22:21)
[2020-09-13] MEDS: Albuterol/Ipratropium 3.0-0.5 MG/3 ML Neb Soln NEB SCH ×4 (07:16→20:42)
[2020-09-13] MEDS: Formoterol/Mometasone 200-5 MCG 8.8 GM Inhaler IH SCH ×2 (09:00→20:11)
--- NOTE | 2020-09-13 10:03 | PCM.PN ---
- General Info Date of Service: 09/13/20 Subjective Update: Patient was agitated much of the evening and into the night. He has been sleeping fairly comfortably for several hours now. He is not able to provide any history today. Respiratory status has been stable. Blood pressure and heart rate have been stable. Still has some CO2 retention based on ABGs. He has not had any fevers. Unable to void after Grant catheter was removed yesterday and a new catheter has been placed. - Review of Systems General: Reports: Weakness. Denies: Fever Neurological: Reports: Confusion - Patient Data Vitals - Most Recent: Last Vital Signs Temp 36.2 C 09/13/20 05:00 Pulse 72 09/13/20 07:19 Resp 13 09/13/20 07:00 BP 154/68 H 09/13/20 07:00 Pulse Ox 95 09/13/20 07:19 Weight - Most Recent: 85.23 kg I&O - Last 24 Hours: Intake & Output 09/12/20 09/13/20 09/13/20 22:59 06:59 14:59 Intake Total 897 Output Total 300 750 Balance -300 147 Lab Results Last 24 Hours: Laboratory Results - last 24 hr 09/13/20 09/13/20 09/13/20 Range/Units 05:00 05:00 05:46 WBC 12.7 H (4.5-11.0) K/uL RBC 4.33 (4.30-5.90) M/uL Hgb 12.5 (12.0-15.0) g/dL Hct 42.1 (40.0-54.0) % MCV 97 (80-98) fL MCH 29 (27-31) pg MCHC 30 L (32-36) % Plt Count 278 (150-400) K/uL Puncture Site Lt brachial ABG pH 7.326 L (7.350-7.450) ABG pCO2 55.2 H (35.0-42.0) mmHg ABG pO2 118.0 H (75.0-100.0) mmHg ABG HCO3 28.0 H (22.0-26.0) mmol/L ABG Total CO2 25.4 (23.0-27.0) mmol/L ABG O2 Saturation 97.6 (95.0-98.0) % ABG O2 Content 17.6 (15.0-23.0) %vol ABG Base Excess 1.5 mm/L ABG Hemoglobin 13.0 L (13.5-18.0) g/dL ABG Oxyhemoglobin 95.2 % ABG Carboxyhemoglobin 1.7 H (0.0-1.6) % ABG Methemoglobin 0.8 % Matt Test Not performed O2 Delivery Device Nasal cannula Oxygen Flow Rate 2.0 L Sodium 151 H (140-148) mmol/L Potassium 4.8 (3.6-5.2) mmol/L Chloride 113 H (100-108) mmol/L Carbon Dioxide 29 (21-32) mmol/L Anion Gap 13.8 (5.0-14.0) mmol/L BUN 43 H (7-18) mg/dL Creatinine 0.9 (0.8-1.3) mg/dL Est Cr Clr Drug Dosing 68.28 mL/min Estimated GFR (MDRD) > 60 (>60) Glucose 145 H (74-106) mg/dL Calcium 8.6 (8.5-10.1) mg/dL Med Orders - Current: Current Medications Acetaminophen (Tylenol) 650 mg RECTAL Q4H PRN PRN Reason: Pain/Fever Albuterol (Proventil Neb Soln) 2.5 mg NEB Q4H PRN PRN Reason: Shortness Of Breath/wheezing Albuterol/Ipratropium (Duoneb 3.0-0.5 Mg/3 Ml) 3 ml NEB QIDRT [facility] Last Admin: 09/13/20 07:16 Dose: 3 ml Documented by: Benzonatate (Tessalon Perles) 100 mg PO TID PRN PRN Reason: Cough Capsaicin (Zostrix 0.025% Crm) 0 gm TOP BID PRN PRN Reason: PAIN Diphenhydramine HCl (Benadryl) 50 mg IV Q6H PRN PRN Reason: severe agitation Last Admin: 09/13/20 00:05 Dose: 50 mg Documented by: Enoxaparin Sodium (Lovenox) 40 mg SUBCUT Q24H [facility] Last Admin: 09/12/20 17:20 Dose: 40 mg Documented by: Haloperidol Lactate (Haldol) 5 mg IVPUSH Q4H PRN PRN Reason: Agitation Last Admin: 11/22/20 02:53 Dose: 5 mg Documented by: Meropenem 1 gm/ Sodium (Chloride) 100 mls @ 200 mls/hr IV Q8H [facility] Last Admin: 09/13/20 05:45 Dose: 200 mls/hr Documented by: Levofloxacin/Dextrose 750 mg/ (Premix) 150 mls @ 100 mls/hr IV Q24H [facility] Last Admin: 09/12/20 12:20 Dose: 100 mls/hr Documented by: Valproic Acid 500 mg/ Sodium (Chloride) 55 mls @ 50 mls/hr IV BID [facility] Last Admin: 09/13/20 09:00 Dose: 50 mls/hr Documented by: Dextrose/Water (Dextrose 5% In Water) 1,000 mls @ 75 mls/hr IV ASDIRECTED [facility] Ketorolac Tromethamine (Toradol) 15 mg IVPUSH Q6H PRN PRN Reason: Pain/Fever Stop: 09/14/20 20:10 Last Admin: 09/12/20 12:19 Dose: 15 mg Documented by: Lorazepam (Ativan) 1 mg IVPUSH Q2H PRN PRN Reason: Anxiety Last Admin: 09/13/20 04:01 Dose: 1 mg Documented by: Methylprednisolone Sodium Succinate (Solu-Medrol) 40 mg IVPUSH Q8H [facility] Last Admin: 09/13/20 02:53 Dose: 40 mg Documented by: Mometasone Furoate/Formoterol Fumar (Dulera 200-5 Mcg) 0 puff IH BIDRT [facility] Last Admin: 09/12/20 21:02 Dose: 2 puff Documented by: Morphine Sulfate (Morphine) 8 mg IVPUSH Q1H PRN PRN Reason: air hunger Last Admin: 09/13/20 04:01 Dose: 8 mg Documented by: Ondansetron HCl (Zofran) 4 mg IV Q6H PRN PRN Reason: Nausea/Vomiting Discontinued Medications Acetaminophen (Tylenol) 650 mg PO Q4H PRN PRN Reason: Pain (Mild 1-3)/fever Last Admin: 09/09/20 19:36 Dose: 650 mg Documented by: Albuterol (Proventil Neb Soln) 2.5 mg NEB ONETIME ONE Stop: 09/09/20 17:55 Last Admin: 09/09/20 18:05 Dose: 2.5 mg Documented by: Alprazolam (Xanax) 0.125 mg PO NOW ONE Stop: 09/09/20 17:04 Last Admin: 09/09/20 17:11 Dose: 0.125 mg Documented by: Aspirin (Ecotrin) 325 mg PO BID [facility] Atorvastatin Calcium (Lipitor) 20 mg PO BEDTIME [facility] Azithromycin (Zithromax) 500 mg PO DAILY [facility] Last Admin: 09/09/20 17:10 Dose: 500 mg Documented by: Azithromycin (Zithromax) 250 mg PO DAILY [facility] Stop: 09/13/20 09:01 Last Admin: 09/10/20 15:47 Dose: Not Given Documented by: Carbidopa/Levodopa (Sinemet Cr 50-200 Mg) 1 tab PO BEDTIME [facility] Carbidopa/Levodopa (Sinemet 25-250 Mg) 2 tab PO QID [facility] Clopidogrel Bisulfate (Plavix) 75 mg PO DAILY [facility] Last Admin: 09/10/20 15:47 Dose: Not Given Documented by: Duloxetine HCl (Cymbalta) 90 mg PO BEDTIME [facility] Furosemide (Lasix) 20 mg IVPUSH ONETIME ONE Stop: 09/09/20 23:01 Last Admin: 09/09/20 23:18 Dose: 20 mg Documented by: Guaifenesin/Dextromethorphan (Robitussin Dm) 10 ml PO Q4H PRN PRN Reason: Cough Haloperidol Lactate (Haldol) 2.5 mg IVPUSH Q4H PRN PRN Reason: Agitation Last Admin: 09/11/20 14:12 Dose: 2.5 mg Documented by: Potassium Chloride/Sodium Chloride (Normal Saline With 20 Meq Kcl) 1,000 mls @ 500 mls/hr IV ASDIRECTED [facility] Last Admin: 09/09/20 14:06 Dose: 500 mls/hr Documented by: Sodium Chloride (Normal Saline) 100 mls @ 3.5 mls/sec IV ASDIRECTED [facility] Stop: 09/09/20 14:31 Last Admin: 09/09/20 15:36 Dose: 4 mls/sec Documented by: Ceftriaxone Sodium 1 gm/ (Sodium Chloride) 50 mls @ 100 mls/hr IV Q24H [facility] Last Admin: 09/09/20 19:38 Dose: 100 mls/hr Documented by: Acetaminophen 1,000 mg/ Premix 100 mls @ 400 mls/hr IV Q6H [facility] Stop: 09/11/20 06:01 Last Admin: 09/10/20 05:00 Dose: 400 mls/hr Documented by: Acetaminophen 1,000 mg/ Premix 100 mls @ 400 mls/hr IV NOW ONE Stop: 09/10/20 00:59 Last Admin: 09/10/20 01:00 Dose: 400 mls/hr Documented by: Valproic Acid 500 mg/ Sodium (Chloride) 105 mls @ 105 mls/hr IV ONETIME ONE Stop: 09/12/20 11:29 Last Admin: 09/12/20 11:03 Dose: 105 mls/hr Documented by: Potassium Chloride/Dextrose/Sod Cl (D5 1/2 Ns W/ 20 Meq/L Kcl) 1,000 mls @ 75 mls/hr IV ASDIRECTED [facility] Last Admin: 09/12/20 19:32 Dose: 75 mls/hr Documented by: Iopamidol (Isovue-370 (76%)) 100 ml IV . DIRECTED [facility] Stop: 09/09/20 20:00 Last Admin: 09/09/20 15:36 Dose: 100 ml Documented by: Lactobacillus Rhamnosus (Culturelle) 1 cap PO BID [facility] Lorazepam (Ativan) 0.5 mg PO Q4H PRN PRN Reason: Anxiety Lorazepam (Ativan) 0.5 mg IVPUSH Q4H PRN PRN Reason: Anxiety Last Admin: 09/09/20 20:20 Dose: 0.5 mg Documented by: Lorazepam (Ativan) 0.5 mg IVPUSH Q2H PRN PRN Reason: Anxiety Last Admin: 09/11/20 12:54 Dose: 0.5 mg Documented by: Lorazepam (Ativan) 1 mg IVPUSH ONETIME ONE Stop: 09/11/20 08:46 Last Admin: 09/11/20 08:57 Dose: 1 mg Documented by: Lorazepam (Ativan) 1 mg IM ONETIME ONE Stop: 09/12/20 14:33 Last Admin: 09/12/20 14:25 Dose: 1 mg Documented by: Magnesium Hydroxide (Milk Of Magnesia) 30 ml PO Q12H PRN PRN Reason: Constipation Magnesium Oxide (Magnesium Oxide) 400 mg PO DAILY [facility] Last Admin: 09/10/20 15:46 Dose: Not Given Documented by: Melatonin (Melatonin) 9 mg PO BEDTIME [facility] Meloxicam (Mobic) 15 mg PO DAILY [facility] Last Admin: 09/10/20 15:47 Dose: Not Given Documented by: Memantine (Namenda) 10 mg PO BID [facility] Last Admin: 09/10/20 15:47 Dose: Not Given Documented by: Methylprednisolone Sodium Succinate (Solu-Medrol) 125 mg IVPUSH ONETIME ONE Stop: 09/09/20 21:01 Last Admin: 09/09/20 20:41 Dose: 125 mg Documented by: Methylprednisolone Sodium Succinate (Solu-Medrol) 62.5 mg IVPUSH Q8H [facility] Last Admin: 09/12/20 04:24 Dose: 62.5 mg Documented by: Midodrine (Midodrine) 5 mg PO TID [facility] Last Admin: 09/10/20 15:46 Dose: Not Given Documented by: Mirtazapine (Remeron) 30 mg PO BEDTIME [facility] Morphine Sulfate (Morphine) 4 mg IVPUSH Q2H PRN PRN Reason: air hunger Last Admin: 09/09/20 21:10 Dose: 4 mg Documented by: Morphine Sulfate (Morphine) 4 mg IVPUSH Q1H PRN PRN Reason: air hunger Last Admin: 09/11/20 13:53 Dose: 4 mg Documented by: Morphine Sulfate (Morphine) 8 mg IVPUSH Q1H PRN PRN Reason: air hunger Last Admin: 09/12/20 06:00 Dose: 8 mg Documented by: Olanzapine (Zyprexa) 10 mg IM ONETIME ONE Stop: 09/12/20 18:50 Last Admin: 09/12/20 19:26 Dose: 10 mg Documented by: Ondansetron HCl (Zofran Odt) 4 mg PO Q6H PRN PRN Reason: Nausea able to take PO Oxycodone HCl (Oxycodone) 5 mg PO Q4H PRN PRN Reason: Pain (moderate 4-6) Pantoprazole Sodium (Protonix) 40 mg PO ACBREAKFAST [facility] Potassium Chloride (Potassium Chloride) 40 meq PO ONETIME ONE Stop: 09/09/20 13:21 Last Admin: 09/09/20 13:49 Dose: 40 meq Documented by: Senna/Docusate Sodium (Senna Plus) 1 tab PO BID PRN PRN Reason: Constipation Sodium Chloride (Saline Flush) 10 ml FLUSH ONETIME ONE Stop: 09/09/20 14:28 Last Admin: 09/09/20 15:36 Dose: 10 ml Documented by: Tamsulosin HCl (Flomax) 0.4 mg PO DAILY [facility] Last Admin: 09/10/20 15:46 Dose: Not Given Documented by: - Exam Quality Assessment: Supplemental Oxygen General: No Acute Distress, Sedated. No: Alert Lungs: Normal Respiratory Effort, Rhonchi Cardiovascular: Regular Rate, Regular Rhythm GI/Abdominal Exam: Soft, No Distention Extremities: No Pedal Edema. No: Increased Warmth Skin: Warm, Dry Psy/Mental Status: No: Alert, Agitated Sepsis Event Note - Evaluation Sepsis Screening Result: No Definite Risk - Focused Exam Vital Signs: Vital Signs Temp Pulse Resp BP Pulse Ox Pulse Ox 09/13/20 07:19 72 95 09/13/20 07:00 69 13 154/68 H 93 L 09/13/20 05:00 36.2 C 64 160/76 H 96 09/13/20 03:00 60 86 L 09/13/20 01:00 64 95 09/12/20 23:00 36.4 C 72 16 156/67 H 94 L - Problem List & Annotations (1) Right lower lobe pneumonia SNOMED Code(s): 317658940 Code(s): J18.9 - PNEUMONIA, UNSPECIFIED ORGANISM Status: Acute Current Visit: Yes Qualifiers: Pneumonia type: aspiration pneumonia Aspiration pneumonia type: due to gastric secretions Qualified Code(s): J69.0 - Pneumonitis due to inhalation of food and vomit (2) Parkinson's disease SNOMED Code(s): 79884149 Code(s): G20 - PARKINSON'S DISEASE Status: Chronic Current Visit: Yes (3) COPD (chronic obstructive pulmonary disease) SNOMED Code(s): 75405424 Code(s): J44.9 - CHRONIC OBSTRUCTIVE PULMONARY DISEASE, UNSPECIFIED Status: Chronic Current Visit: Yes Qualifiers: Emphysema type: unspecified - Problem List Review Problem List Initiated/Reviewed/Updated: Yes - My Orders Last 24 Hours: My Active Orders 09/12/20 11:00 methylPREDNISolone Sod Succ [Solu-MEDROL] 40 mg IVPUSH Q8H 09/12/20 15:50 diphenhydrAMINE [Benadryl] 50 mg IV Q6H PRN 09/12/20 18:56 Nrsg Assess Restraint Init/Mon [RC] Q1H 09/12/20 21:00 Valproate Sodium [Depacon] 500 mg Sodium Chloride 0.9% [Normal Saline] 50 ml IV BID 09/13/20 05:03 Urinary Catheter Assessment [RC] ASDIRECTED 09/13/20 08:51 Initiate/Renew Non-Violent Restraints (All Ages) Q24H 09/13/20 09:00 Dextrose 5% in Water 1,000 ml IV ASDIRECTED 09/14/20 03:00 Insert Grant Catheter [Insert Urinary Catheter] [OM.PC] Q24H 09/14/20 05:00 BASIC METABOLIC PANEL,BMP [CHEM] Timed BLOOD GAS ARTERIAL [BG] Timed CBC W/O DIFF,HEMOGRAM [HEME] Timed (1) - Plan Plan:: ASSESSMENT AND PLAN - Right lower lobe aspiration pneumonia-respiratory status seems to have stabilized but he remains compromised and has some persistent CO2 retention. He is not requiring a lot of oxygen at this point. Loose cough. Still with significant agitation. -Antibiotic coverage with levofloxacin and meropenem -Continue NIPPV -Continue IV steroids -Supplement oxygen as needed -Scheduled and as needed nebulizers -Symptomatic management of the cough -Speech pathology evaluation once stable Hyperactive delirium-probably related to the aspiration pneumonia with potential contribution from the steroids. He was finally able to get some sleep last night. -Trial of IV valproate -As needed Zyprexa -Morphine versus lorazepam versus Haldol as needed -Head CT Possible dysphagia-concern for aspiration as discussed above. Patient is too sick for speech path evaluation at this time. -N.p.o. status for now -Speech pathology evaluation when he is more alert COPD-this has been stable. No evidence for exacerbation at this time. No wheezing. -Continue home medications Parkinson's disease-tremor was better today. -Continue home medications (on hold because he cannot swallow any pills) Maintenance issues - - DVT prophylaxis -enoxaparin until he can resume his aspirin - GI prophylaxis -PPI - Nutrition -nothing by mouth - Grant catheter -replaced 09/13 for inability to void Disposition -I would anticipate discharge back to the [facility] after the hospital stay if he survives the hospital stay Shabbir Dunn M.D.
[2020-09-13] MEDS: Levofloxacin/Dextrose 5%-Water 750 MG in Premix Bag 1 BAG IV SCH (10:34)
--- NOTE | 2020-09-13 12:03 | CRLCT ---
INDICATION: Delirium. TECHNIQUE: Noncontrast CT images were acquired through the brain. COMPARISON: None. FINDINGS: Artifact mildly degrades image quality. Prominence of the ventricles and sulci compatible with mild to moderate diffuse cerebral volume loss. No mass effect or midline shift. The diallo-white differentiation is maintained. No acute intracranial hemorrhage or pathologic extra-axial fluid collection. Patchy hypoattenuation in the supratentorial white matter, suggestive of mild chronic microvascular ischemic changes. Prominent perivascular spaces or chronic appearing lacunar infarctions in the bilateral basal ganglia. Intracranial atherosclerotic calcifications. The calvarium is intact. Thinning of the ocular lenses. Mild nonspecific soft tissue stranding overlying the posterior parietal calvarium. The calvarium is intact. The visualized paranasal sinuses and mastoid air cells are clear. IMPRESSION: 1. No acute intracranial hemorrhage or mass effect. 2. Suggested mild chronic microvascular ischemic changes. Chronic lacunar infarctions or prominent perivascular spaces in the bilateral basal ganglia. 3. Dplx-ev-kiemaess diffuse cerebral volume loss. Please note that all CT scans at this facility use dose modulation, iterative reconstruction, and/or weight-based dosing when appropriate to reduce radiation dose to as low as reasonably achievable. Dictated by Jaspal Terry MD @ Sep 13 2020 11:59AM Signed by Dr. Jaspal Terry @ Sep 13 2020 12:02PM
[2020-09-13] MEDS: Dextrose 5% in Water 1,000 ML IV SCH (12:34)
[2020-09-13] MEDS: Enoxaparin 40 MG/0.4 ML Syringe SUBCUT SCH (18:25)
[2020-09-13] MEDS ORDERED: OLANZapine 10 MG Vial IM PRN (18:59)
[2020-09-14] MEDS: LORazepam 2 MG/ML SDV IVPUSH PRN ×4 (00:35→17:02)
[2020-09-14] MEDS: Morphine 10 MG/ML Syringe IVPUSH PRN ×6 (03:02→20:04)
[2020-09-14] MEDS: methylPREDNISolone Sodium Succinate 40 MG/1 ML SDV IVPUSH SCH ×2 (03:03→10:35)
[2020-09-14] MEDS: Meropenem 1 GM in Sodium Chloride 0.9% 100 ML IV SCH (05:13)
[2020-09-14] MEDS: Dextrose 5% in Water 1,000 ML IV SCH (05:13)
[2020-09-14] MEDS ORDERED: Diltiazem 25 MG/5 ML SDV IVPUSH STA (06:12)
[2020-09-14] MEDS ORDERED: Diltiazem 100 MG in Sodium Chloride 0.9% 100 ML IV SCH (06:15)
[2020-09-14] MEDS ORDERED: Diltiazem 25 MG/5 ML SDV ONE ×2 (06:17→06:19)
[2020-09-14] MEDS ORDERED: Diltiazem 100 MG AdvVial ONE (06:18)
[2020-09-14] MEDS ORDERED: Sodium Chloride 0.9% 100 ML ONE (06:20)
[2020-09-14] MEDS: Formoterol/Mometasone 200-5 MCG 8.8 GM Inhaler IH SCH ×2 (07:11→22:33)
[2020-09-14] MEDS: Albuterol/Ipratropium 3.0-0.5 MG/3 ML Neb Soln NEB SCH ×2 (07:11→10:45)
[2020-09-14] MEDS: Levofloxacin/Dextrose 5%-Water 750 MG in Premix Bag 1 BAG IV SCH (09:49)
[2020-09-14] MEDS: Haloperidol Lactate 5 MG/ML SDV IVPUSH PRN ×2 (10:33→16:11)
--- NOTE | 2020-09-14 12:09 | PCM.PN ---
- General Info Date of Service: 09/14/20 Subjective Update: Mr. Hopkins has developed tachycardia and hypotension. He has been intolerant of IV diltiazem because of hypotension. Continues to require high level of support from a respiratory standpoint with supplemental oxygen and noninvasive positive pressure ventilation. I reviewed current status with his son Errol who has requested that we changed to comfort cares only and stop aggressive interventions. Mr. Hopkins is unable to provide meaningful history concerning symptoms or review of systems because of his agitation and sedation. - Patient Data Vitals - Most Recent: Last Vital Signs Temp 96.9 F 09/14/20 07:00 Pulse 123 H 09/14/20 11:28 Resp 21 H 09/14/20 11:28 BP 82/51 L 09/14/20 11:28 Pulse Ox 92 L 09/14/20 11:28 Weight - Most Recent: 187 lb 14.4 oz I&O - Last 24 Hours: Intake & Output 09/13/20 09/14/20 09/14/20 22:59 06:59 14:59 Intake Total 900 950 Output Total 600 850 Balance 300 100 Lab Results Last 24 Hours: Laboratory Results - last 24 hr 09/14/20 09/14/20 09/14/20 Range/Units 04:30 04:30 04:30 WBC 16.0 H (4.5-11.0) K/uL RBC 4.40 (4.30-5.90) M/uL Hgb 13.0 (12.0-15.0) g/dL Hct 42.6 (40.0-54.0) % MCV 97 (80-98) fL MCH 30 (27-31) pg MCHC 31 L (32-36) % Plt Count 250 (150-400) K/uL Puncture Site R brachial ABG pH 7.314 L (7.350-7.450) ABG pCO2 65.9 H (35.0-42.0) mmHg ABG pO2 86.7 (75.0-100.0) mmHg ABG HCO3 32.5 H (22.0-26.0) mmol/L ABG Total CO2 29.5 H (23.0-27.0) mmol/L ABG O2 Saturation 94.5 L (95.0-98.0) % ABG O2 Content 17.5 (15.0-23.0) %vol ABG Base Excess 4.8 mm/L ABG Hemoglobin 13.4 L (13.5-18.0) g/dL ABG Oxyhemoglobin 92.8 % ABG Carboxyhemoglobin 0.8 (0.0-1.6) % ABG Methemoglobin 1.0 % O2 Delivery Device Nasal cannula Oxygen Flow Rate L Sodium 146 (140-148) mmol/L Potassium 4.4 (3.6-5.2) mmol/L Chloride 109 H (100-108) mmol/L Carbon Dioxide 32 (21-32) mmol/L Anion Gap 9.4 (5.0-14.0) mmol/L BUN 29 H (7-18) mg/dL Creatinine 0.8 (0.8-1.3) mg/dL Est Cr Clr Drug Dosing 76.81 mL/min Estimated GFR (MDRD) > 60 (>60) Glucose 136 H (74-106) mg/dL Calcium 8.9 (8.5-10.1) mg/dL Med Orders - Current: Current Medications Acetaminophen (Tylenol) 650 mg RECTAL Q4H PRN PRN Reason: Pain/Fever Benzonatate (Tessalon Perles) 100 mg PO TID PRN PRN Reason: Cough Capsaicin (Zostrix 0.025% Crm) 0 gm TOP BID PRN PRN Reason: PAIN Diphenhydramine HCl (Benadryl) 50 mg IV Q6H PRN PRN Reason: severe agitation Last Admin: 09/13/20 10:49 Dose: 50 mg Documented by: Haloperidol Lactate (Haldol) 5 mg IVPUSH Q4H PRN PRN Reason: Agitation Last Admin: 09/14/20 10:33 Dose: 5 mg Documented by: Valproic Acid 500 mg/ Sodium (Chloride) 55 mls @ 50 mls/hr IV BID [facility] Last Admin: 09/14/20 09:29 Dose: 50 mls/hr Documented by: Ketorolac Tromethamine (Toradol) 15 mg IVPUSH Q6H PRN PRN Reason: Pain/Fever Stop: 09/14/20 20:10 Last Admin: 09/12/20 12:19 Dose: 15 mg Documented by: Lorazepam (Ativan) 1 mg IVPUSH Q2H PRN PRN Reason: Anxiety Last Admin: 09/14/20 07:42 Dose: 1 mg Documented by: Mometasone Furoate/Formoterol Fumar (Dulera 200-5 Mcg) 0 puff IH BIDRT [facility] Last Admin: 09/14/20 07:11 Dose: Not Given Documented by: Morphine Sulfate (Morphine) 8 mg IVPUSH Q1H PRN PRN Reason: air hunger Last Admin: 09/14/20 09:40 Dose: 8 mg Documented by: Ondansetron HCl (Zofran) 4 mg IV Q6H PRN PRN Reason: Nausea/Vomiting Discontinued Medications Acetaminophen (Tylenol) 650 mg PO Q4H PRN PRN Reason: Pain (Mild 1-3)/fever Last Admin: 09/09/20 19:36 Dose: 650 mg Documented by: Albuterol (Proventil Neb Soln) 2.5 mg NEB ONETIME ONE Stop: 09/09/20 17:55 Last Admin: 09/09/20 18:05 Dose: 2.5 mg Documented by: Albuterol (Proventil Neb Soln) 2.5 mg NEB Q4H PRN PRN Reason: Shortness Of Breath/wheezing Albuterol/Ipratropium (Duoneb 3.0-0.5 Mg/3 Ml) 3 ml NEB QIDRT [facility] Last Admin: 09/14/20 10:45 Dose: Not Given Documented by: Alprazolam (Xanax) 0.125 mg PO NOW ONE Stop: 09/09/20 17:04 Last Admin: 09/09/20 17:11 Dose: 0.125 mg Documented by: Aspirin (Ecotrin) 325 mg PO BID [facility] Atorvastatin Calcium (Lipitor) 20 mg PO BEDTIME [facility] Azithromycin (Zithromax) 500 mg PO DAILY [facility] Last Admin: 09/09/20 17:10 Dose: 500 mg Documented by: Azithromycin (Zithromax) 250 mg PO DAILY [facility] Stop: 09/13/20 09:01 Last Admin: 09/10/20 15:47 Dose: Not Given Documented by: Carbidopa/Levodopa (Sinemet Cr 50-200 Mg) 1 tab PO BEDTIME [facility] Carbidopa/Levodopa (Sinemet 25-250 Mg) 2 tab PO QID [facility] Clopidogrel Bisulfate (Plavix) 75 mg PO DAILY [facility] Last Admin: 09/10/20 15:47 Dose: Not Given Documented by: Diltiazem HCl (Diltiazem) 15 mg IVPUSH ONETIME STA Stop: 09/14/20 06:13 Last Admin: 09/14/20 06:33 Dose: 15 mg Documented by: Diltiazem HCl (Diltiazem) Confirm Administered Dose 25 mg .ROUTE .STK-MED ONE Stop: 09/14/20 06:18 Last Admin: 09/14/20 06:51 Dose: Not Given Documented by: Diltiazem HCl (Cardizem) Confirm Administered Dose 100 mg .ROUTE .STK-MED ONE Stop: 09/14/20 06:19 Last Admin: 09/14/20 06:51 Dose: Not Given Documented by: Diltiazem HCl (Diltiazem) Confirm Administered Dose 25 mg .ROUTE .STK-MED ONE Stop: 09/14/20 06:20 Last Admin: 09/14/20 06:51 Dose: Not Given Documented by: Duloxetine HCl (Cymbalta) 90 mg PO BEDTIME [facility] Enoxaparin Sodium (Lovenox) 40 mg SUBCUT Q24H [facility] Last Admin: 09/13/20 18:25 Dose: 40 mg Documented by: Furosemide (Lasix) 20 mg IVPUSH ONETIME ONE Stop: 09/09/20 23:01 Last Admin: 09/09/20 23:18 Dose: 20 mg Documented by: Guaifenesin/Dextromethorphan (Robitussin Dm) 10 ml PO Q4H PRN PRN Reason: Cough Haloperidol Lactate (Haldol) 2.5 mg IVPUSH Q4H PRN PRN Reason: Agitation Last Admin: 09/11/20 14:12 Dose: 2.5 mg Documented by: Potassium Chloride/Sodium Chloride (Normal Saline With 20 Meq Kcl) 1,000 mls @ 500 mls/hr IV ASDIRECTED [facility] Last Admin: 09/09/20 14:06 Dose: 500 mls/hr Documented by: Sodium Chloride (Normal Saline) 100 mls @ 3.5 mls/sec IV ASDIRECTED [facility] Stop: 09/09/20 14:31 Last Admin: 09/09/20 15:36 Dose: 4 mls/sec Documented by: Ceftriaxone Sodium 1 gm/ (Sodium Chloride) 50 mls @ 100 mls/hr IV Q24H [facility] Last Admin: 09/09/20 19:38 Dose: 100 mls/hr Documented by: Meropenem 1 gm/ Sodium (Chloride) 100 mls @ 200 mls/hr IV Q8H [facility] Last Admin: 09/14/20 05:13 Dose: 200 mls/hr Documented by: Acetaminophen 1,000 mg/ Premix 100 mls @ 400 mls/hr IV Q6H [facility] Stop: 09/11/20 06:01 Last Admin: 09/10/20 05:00 Dose: 400 mls/hr Documented by: Acetaminophen 1,000 mg/ Premix 100 mls @ 400 mls/hr IV NOW ONE Stop: 09/10/20 00:59 Last Admin: 09/10/20 01:00 Dose: 400 mls/hr Documented by: Levofloxacin/Dextrose 750 mg/ (Premix) 150 mls @ 100 mls/hr IV Q24H [facility] Last Admin: 09/14/20 09:49 Dose: 100 mls/hr Documented by: Valproic Acid 500 mg/ Sodium (Chloride) 105 mls @ 105 mls/hr IV ONETIME ONE Stop: 09/12/20 11:29 Last Admin: 09/12/20 11:03 Dose: 105 mls/hr Documented by: Potassium Chloride/Dextrose/Sod Cl (D5 1/2 Ns W/ 20 Meq/L Kcl) 1,000 mls @ 75 mls/hr IV ASDIRECTED [facility] Last Admin: 09/12/20 19:32 Dose: 75 mls/hr Documented by: Dextrose/Water (Dextrose 5% In Water) 1,000 mls @ 75 mls/hr IV ASDIRECTED [facility] Last Admin: 09/14/20 05:13 Dose: 75 mls/hr Documented by: Diltiazem HCl 100 mg/ Sodium (Chloride) 100 mls @ 5 mls/hr IV TITRATE [facility]; Protocol Last Titration: 09/14/20 07:36 Dose: 10 mg/hr, 10 mls/hr Documented by: Sodium Chloride (Normal Saline) Confirm Administered Dose 100 mls @ as directed .ROUTE .STK-MED ONE Stop: 09/14/20 06:21 Last Admin: 09/14/20 06:51 Dose: Not Given Documented by: Iopamidol (Isovue-370 (76%)) 100 ml IV . DIRECTED [facility] Stop: 09/09/20 20:00 Last Admin: 09/09/20 15:36 Dose: 100 ml Documented by: Lactobacillus Rhamnosus (Culturelle) 1 cap PO BID [facility] Lorazepam (Ativan) 0.5 mg PO Q4H PRN PRN Reason: Anxiety Lorazepam (Ativan) 0.5 mg IVPUSH Q4H PRN PRN Reason: Anxiety Last Admin: 09/09/20 20:20 Dose: 0.5 mg Documented by: Lorazepam (Ativan) 0.5 mg IVPUSH Q2H PRN PRN Reason: Anxiety Last Admin: 09/11/20 12:54 Dose: 0.5 mg Documented by: Lorazepam (Ativan) 1 mg IVPUSH ONETIME ONE Stop: 09/11/20 08:46 Last Admin: 09/11/20 08:57 Dose: 1 mg Documented by: Lorazepam (Ativan) 1 mg IM ONETIME ONE Stop: 09/12/20 14:33 Last Admin: 09/12/20 14:25 Dose: 1 mg Documented by: Magnesium Hydroxide (Milk Of Magnesia) 30 ml PO Q12H PRN PRN Reason: Constipation Magnesium Oxide (Magnesium Oxide) 400 mg PO DAILY [facility] Last Admin: 09/10/20 15:46 Dose: Not Given Documented by: Melatonin (Melatonin) 9 mg PO BEDTIME [facility] Meloxicam (Mobic) 15 mg PO DAILY [facility] Last Admin: 09/10/20 15:47 Dose: Not Given Documented by: Memantine (Namenda) 10 mg PO BID [facility] Last Admin: 09/10/20 15:47 Dose: Not Given Documented by: Methylprednisolone Sodium Succinate (Solu-Medrol) 125 mg IVPUSH ONETIME ONE Stop: 09/09/20 21:01 Last Admin: 09/09/20 20:41 Dose: 125 mg Documented by: Methylprednisolone Sodium Succinate (Solu-Medrol) 62.5 mg IVPUSH Q8H [facility] Last Admin: 09/12/20 04:24 Dose: 62.5 mg Documented by: Methylprednisolone Sodium Succinate (Solu-Medrol) 40 mg IVPUSH Q8H [facility] Last Admin: 09/14/20 10:35 Dose: 40 mg Documented by: Midodrine (Midodrine) 5 mg PO TID [facility] Last Admin: 09/10/20 15:46 Dose: Not Given Documented by: Mirtazapine (Remeron) 30 mg PO BEDTIME [facility] Morphine Sulfate (Morphine) 4 mg IVPUSH Q2H PRN PRN Reason: air hunger Last Admin: 09/09/20 21:10 Dose: 4 mg Documented by: Morphine Sulfate (Morphine) 4 mg IVPUSH Q1H PRN PRN Reason: air hunger Last Admin: 09/11/20 13:53 Dose: 4 mg Documented by: Morphine Sulfate (Morphine) 8 mg IVPUSH Q1H PRN PRN Reason: air hunger Last Admin: 09/12/20 06:00 Dose: 8 mg Documented by: Olanzapine (Zyprexa) 10 mg IM ONETIME ONE Stop: 09/12/20 18:50 Last Admin: 09/12/20 19:26 Dose: 10 mg Documented by: Olanzapine (Zyprexa) 10 mg IM ONETIME PRN PRN Reason: severe agitation Last Admin: 09/14/20 03:57 Dose: 10 mg Documented by: Ondansetron HCl (Zofran Odt) 4 mg PO Q6H PRN PRN Reason: Nausea able to take PO Oxycodone HCl (Oxycodone) 5 mg PO Q4H PRN PRN Reason: Pain (moderate 4-6) Pantoprazole Sodium (Protonix) 40 mg PO ACBREAKFAST [facility] Potassium Chloride (Potassium Chloride) 40 meq PO ONETIME ONE Stop: 09/09/20 13:21 Last Admin: 09/09/20 13:49 Dose: 40 meq Documented by: Senna/Docusate Sodium (Senna Plus) 1 tab PO BID PRN PRN Reason: Constipation Sodium Chloride (Saline Flush) 10 ml FLUSH ONETIME ONE Stop: 09/09/20 14:28 Last Admin: 09/09/20 15:36 Dose: 10 ml Documented by: Tamsulosin HCl (Flomax) 0.4 mg PO DAILY [facility] Last Admin: 09/10/20 15:46 Dose: Not Given Documented by: - Exam Quality Assessment: Supplemental Oxygen, DVT Prophylaxis General: Sedated, Lethargic Lungs: Rales, Rhonchi. No: Crackles, Wheezing Cardiovascular: Regular Rhythm, No Murmurs, Tachycardia GI/Abdominal Exam: Soft, Non-Tender, No Organomegaly, No Distention Extremities: Non-Tender, No Pedal Edema Sepsis Event Note - Evaluation Sepsis Screening Result: No Definite Risk - Focused Exam Vital Signs: Vital Signs Temp Pulse Resp BP Pulse Ox 09/14/20 11:28 123 H 21 H 82/51 L 92 L 09/14/20 10:00 118 H 25 H 128/75 09/14/20 09:00 121 H 25 H 132/81 96 09/14/20 07:00 96.9 F 120 H 20 188/91 H 90 L 09/14/20 05:00 99.1 F 79 17 172/65 H 98 09/14/20 03:00 80 26 H 179/82 H 96 09/14/20 01:00 85 18 155/68 H 94 L - Problem List Review Problem List Initiated/Reviewed/Updated: Yes - My Orders Last 24 Hours: My Active Orders 09/14/20 11:52 Resuscitation Status Routine - Plan Plan:: ASSESSMENT AND PLAN - Right lower lobe aspiration pneumonia-systems respiratory compromise requiring ongoing use of noninvasive positive pressure ventilation and supplemental oxygen. Family has decided to go to comfort care only -Supplement oxygen as needed for comfort Palliative care-now experiencing hemodynamic instability and tachycardia. Family has requested that we move to comfort cares and stop aggressive interventions and evaluation. They feel that this is consistent with the patient's previously expressed wishes. -Lorazepam and/or morphine as needed for comfort Hemodynamic instability-hypotension associated with tachycardia Hyperactive delirium-probably related to the aspiration pneumonia with potential contribution from the steroids. -IV valproate -As needed Zyprexa -Morphine versus lorazepam versus Haldol as needed Possible dysphagia-concern for aspiration as discussed above. Patient is too sick for speech path evaluation at this time. -N.p.o. status for now COPD-this has been stable. No evidence for exacerbation at this time. No wheezing. -Continue home medications Parkinson's disease-tremor was better today. -Continue home medications (on hold because he cannot swallow any pills) Maintenance issues - - DVT prophylaxis -enoxaparin until he can resume his aspirin - GI prophylaxis -PPI - Nutrition -nothing by mouth - Grant catheter -replaced 09/13 for inability to void Disposition -I would anticipate discharge back to the [place] [facility] after the hospital stay if he survives the hospital stay
--- NOTE | 2020-09-15 08:23 | PCM.DCSUM1 ---
Discharge Summary - Hospital Course Brief History: Mr. Hopkins was an 79-year-old gentleman who was admitted through the emergency department with shortness of breath secondary to aspiration pneumonia and underlying COVID-19 - Discharge Data Discharge Date: 09/14/20 Discharge Disposition: 20 Preliminary Cause of *Q: Respiratory Failure Condition: - Referral to Home Health Primary Care Physician: Jonh Tavarez MD - Discharge Diagnosis/Problem(s) (1) Aspiration pneumonia SNOMED Code(s): 050828890 ICD Code: J69.0 - PNEUMONITIS DUE TO INHALATION OF FOOD AND VOMIT Status: Acute (2) Dementia SNOMED Code(s): 43447596 ICD Code: F03.90 - UNSPECIFIED DEMENTIA WITHOUT BEHAVIORAL DISTURBANCE Status: Acute (3) Agitation due to dementia SNOMED Code(s): 660351327 ICD Code: F03.91 - UNSPECIFIED DEMENTIA WITH BEHAVIORAL DISTURBANCE Status: Acute (4) COVID-19 SNOMED Code(s): 580054820 ICD Code: U07.1 - COVID-19 Status: Acute (5) Hypokalemia SNOMED Code(s): 43492425 ICD Code: E87.6 - HYPOKALEMIA Status: Acute (6) Mild dehydration SNOMED Code(s): 0266831918460 ICD Code: E86.0 - DEHYDRATION Status: Acute (7) COPD (chronic obstructive pulmonary disease) SNOMED Code(s): 63414198 ICD Code: J44.9 - CHRONIC OBSTRUCTIVE PULMONARY DISEASE, UNSPECIFIED Status: Chronic Qualifiers: Emphysema type: unspecified (8) Parkinson's disease SNOMED Code(s): 86198721 ICD Code: G20 - PARKINSON'S DISEASE Status: Chronic (9) Palliative care status SNOMED Code(s): 978142094 ICD Code: Z51.5 - ENCOUNTER FOR PALLIATIVE CARE Status: Acute - Patient Summary/Data Hospital Course: Mr. Hopkins presented to the emergency room with shortness of breath. He reported onset of symptoms about 24 hours prior, which was about suppertime last night. He had not previously had any difficulty with coughing after eating or drinking. He felt short of breath most of the night and was still short of breath this morning. He does note that after he got to the emergency room his breathing seemed to improve. He was here for several hours and did not have any episodes of shortness of breath. Initially he was on supplemental oxygen but this was weaned down and weaned off over a few hours. He does not report any chest pain. He has not produced any sputum but does have a loose sounding cough. He has not had any fever. He was diagnosed with Covid about 12 days ago and has completed a course of steroids and the symptoms were all getting better or had resolved prior to onset of symptoms yesterday. No change in bowel or bladder habits. No lower extremity edema. Work-up in the emergency room was fairly unremarkable. He does still have an elevated D-dimer and CRP from his Covid infection. Chest x-ray showed a very subtle right lower lung infiltrate. CT pulmonary angiogram did not show any pulmonary embolism but did show a small right-sided pneumonia. Initially the plan was for the patient to go back to the correction with outpatient therapy but he became short of breath after eating his supper meal with significant tachypnea. He was admitted for observation. On admission he was started on IV antibiotic therapy appropriate for aspiration pneumonia and was given IV fluids for hydration. Unfortunately during the night he experienced further respiratory compromise and was transferred to the intensive care unit. He was started on noninvasive positive pressure ventilation. He became much more confused and agitated requiring several medications for sedation. Over the next several days of hospitalization his respiratory status continued to decline despite ongoing aggressive antibiotic therapy. Situation had been reviewed with his son who wanted treatment for pneumonia. He did request that if his father worsened that we switch to comfort cares and stop aggressive interventions. On the morning of September 14 he developed hypotension associated with tachycardia. Situation was reviewed with his son again and given progressive respiratory compromise as well as hemodynamic instability the decision was made to proceed with comfort cares only. Aggressive interventions were discontinued. Morphine and lorazepam were used as needed for comfort. He late in the evening of September 14, no attempts at resuscitation were made as per the patient's and family's previously expressed wishes. - Discharge Plan *PRESCRIPTION DRUG MONITORING PROGRAM REVIEWED*: Not Applicable *COPY OF PRESCRIPTION DRUG MONITORING REPORT IN PATIENT MIRI: Not Applicable Home Medications: Home Meds Acetaminophen [Pain Reliever] 325 mg PO Q4HR PRN 09/09/20 [History] Albuterol [Ventolin HFA] 2 puff IH Q4HR PRN 09/09/20 [History] Aspirin 325 mg PO BID 09/09/20 [History] Capsaicin 30 ml TP BID PRN 09/09/20 [History] Carbidopa/Levodopa [Carbidopa-Levo ER 50-200] 1 tab PO BEDTIME 09/09/20 [History] Carbidopa/Levodopa [Carbidopa-Levo ER 50-200] 1 tab PO BEDTIME PRN 09/09/20 [History] Carbidopa/Levodopa [Carbidopa-Levodopa 25-250] 2 tab PO QID 09/09/20 [History] Clopidogrel Bisulfate [Clopidogrel] 75 mg PO DAILY 09/09/20 [History] DULoxetine HCl [Duloxetine HCl] 90 mg PO BEDTIME 09/09/20 [History] Fluticasone Propion/Salmeterol [Fluticasone-Salmeterol 500-50] 1 puff IH BID 09/09/20 [History] Magnesium Oxide 400 mg PO DAILY 09/09/20 [History] Meloxicam [Mobic] 15 mg PO DAILY 09/09/20 [History] Memantine [Namenda] 10 mg PO BID 09/09/20 [History] Midodrine 5 mg PO TID 09/09/20 [History] Mirtazapine 30 mg PO BEDTIME 09/09/20 [History] Omeprazole 20 mg PO DAILY 09/09/20 [History] Tamsulosin HCl 0.4 mg PO DAILY 09/09/20 [History] atorvaSTATin [Lipitor] 20 mg PO BEDTIME 09/09/20 [History] oxyCODONE 5 mg PO Q12HR PRN 09/09/20 [History] Referrals: Jonh Tavarez MD [Primary Care Provider] - - Discharge Summary/Plan Comment DC Time >30 min.: No - Patient Data Vitals - Most Recent: Last Vital Signs Temp 96.9 F 09/14/20 07:00 Pulse 123 H 09/14/20 11:28 Resp 21 H 09/14/20 11:28 BP 82/51 L 09/14/20 11:28 Pulse Ox 92 L 09/14/20 11:28 Weight - Most Recent: 187 lb 14.4 oz I&O - Last 24 hours: Intake & Output 09/14/20 09/15/20 09/15/20 22:59 06:59 14:59 Output Total 800 Balance -800 Med Orders - Current: Current Medications Discontinued Medications Acetaminophen (Tylenol) 650 mg PO Q4H PRN PRN Reason: Pain (Mild 1-3)/fever Last Admin: 09/09/20 19:36 Dose: 650 mg Documented by: Acetaminophen (Tylenol) 650 mg RECTAL Q4H PRN PRN Reason: Pain/Fever Albuterol (Proventil Neb Soln) 2.5 mg NEB ONETIME ONE Stop: 09/09/20 17:55 Last Admin: 09/09/20 18:05 Dose: 2.5 mg Documented by: Albuterol (Proventil Neb Soln) 2.5 mg NEB Q4H PRN PRN Reason: Shortness Of Breath/wheezing Albuterol/Ipratropium (Duoneb 3.0-0.5 Mg/3 Ml) 3 ml NEB QIDRT [facility] Last Admin: 09/14/20 10:45 Dose: Not Given Documented by: Alprazolam (Xanax) 0.125 mg PO NOW ONE Stop: 09/09/20 17:04 Last Admin: 09/09/20 17:11 Dose: 0.125 mg Documented by: Aspirin (Ecotrin) 325 mg PO BID [facility] Atorvastatin Calcium (Lipitor) 20 mg PO BEDTIME [facility] Azithromycin (Zithromax) 500 mg PO DAILY [facility] Last Admin: 09/09/20 17:10 Dose: 500 mg Documented by: Azithromycin (Zithromax) 250 mg PO DAILY [facility] Stop: 09/13/20 09:01 Last Admin: 09/10/20 15:47 Dose: Not Given Documented by: Benzonatate (Tessalon Perles) 100 mg PO TID PRN PRN Reason: Cough Capsaicin (Zostrix 0.025% Crm) 0 gm TOP BID PRN PRN Reason: PAIN Carbidopa/Levodopa (Sinemet Cr 50-200 Mg) 1 tab PO BEDTIME [facility] Carbidopa/Levodopa (Sinemet 25-250 Mg) 2 tab PO QID [facility] Clopidogrel Bisulfate (Plavix) 75 mg PO DAILY [facility] Last Admin: 09/10/20 15:47 Dose: Not Given Documented by: Diltiazem HCl (Diltiazem) 15 mg IVPUSH ONETIME STA Stop: 09/14/20 06:13 Last Admin: 09/14/20 06:33 Dose: 15 mg Documented by: Diltiazem HCl (Diltiazem) Confirm Administered Dose 25 mg .ROUTE .STK-MED ONE Stop: 09/14/20 06:18 Last Admin: 09/14/20 06:51 Dose: Not Given Documented by: Diltiazem HCl (Cardizem) Confirm Administered Dose 100 mg .ROUTE .STK-MED ONE Stop: 09/14/20 06:19 Last Admin: 09/14/20 06:51 Dose: Not Given Documented by: Diltiazem HCl (Diltiazem) Confirm Administered Dose 25 mg .ROUTE .STK-MED ONE Stop: 09/14/20 06:20 Last Admin: 09/14/20 06:51 Dose: Not Given Documented by: Diphenhydramine HCl (Benadryl) 50 mg IV Q6H PRN PRN Reason: severe agitation Last Admin: 09/13/20 10:49 Dose: 50 mg Documented by: Duloxetine HCl (Cymbalta) 90 mg PO BEDTIME [facility] Enoxaparin Sodium (Lovenox) 40 mg SUBCUT Q24H [facility] Last Admin: 09/13/20 18:25 Dose: 40 mg Documented by: Furosemide (Lasix) 20 mg IVPUSH ONETIME ONE Stop: 09/09/20 23:01 Last Admin: 09/09/20 23:18 Dose: 20 mg Documented by: Guaifenesin/Dextromethorphan (Robitussin Dm) 10 ml PO Q4H PRN PRN Reason: Cough Haloperidol Lactate (Haldol) 2.5 mg IVPUSH Q4H PRN PRN Reason: Agitation Last Admin: 09/11/20 14:12 Dose: 2.5 mg Documented by: Haloperidol Lactate (Haldol) 5 mg IVPUSH Q4H PRN PRN Reason: Agitation Last Admin: 09/14/20 16:11 Dose: 5 mg Documented by: Potassium Chloride/Sodium Chloride (Normal Saline With 20 Meq Kcl) 1,000 mls @ 500 mls/hr IV ASDIRECTED [facility] Last Admin: 09/09/20 14:06 Dose: 500 mls/hr Documented by: Sodium Chloride (Normal Saline) 100 mls @ 3.5 mls/sec IV ASDIRECTED [facility] Stop: 09/09/20 14:31 Last Admin: 09/09/20 15:36 Dose: 4 mls/sec Documented by: Ceftriaxone Sodium 1 gm/ (Sodium Chloride) 50 mls @ 100 mls/hr IV Q24H [facility] Last Admin: 09/09/20 19:38 Dose: 100 mls/hr Documented by: Meropenem 1 gm/ Sodium (Chloride) 100 mls @ 200 mls/hr IV Q8H [facility] Last Admin: 09/14/20 05:13 Dose: 200 mls/hr Documented by: Acetaminophen 1,000 mg/ Premix 100 mls @ 400 mls/hr IV Q6H [facility] Stop: 09/11/20 06:01 Last Admin: 09/10/20 05:00 Dose: 400 mls/hr Documented by: Acetaminophen 1,000 mg/ Premix 100 mls @ 400 mls/hr IV NOW ONE Stop: 09/10/20 00:59 Last Admin: 09/10/20 01:00 Dose: 400 mls/hr Documented by: Levofloxacin/Dextrose 750 mg/ (Premix) 150 mls @ 100 mls/hr IV Q24H [facility] Last Admin: 09/14/20 09:49 Dose: 100 mls/hr Documented by: Valproic Acid 500 mg/ Sodium (Chloride) 105 mls @ 105 mls/hr IV ONETIME ONE Stop: 09/12/20 11:29 Last Admin: 09/12/20 11:03 Dose: 105 mls/hr Documented by: Potassium Chloride/Dextrose/Sod Cl (D5 1/2 Ns W/ 20 Meq/L Kcl) 1,000 mls @ 75 mls/hr IV ASDIRECTED [facility] Last Admin: 09/12/20 19:32 Dose: 75 mls/hr Documented by: Valproic Acid 500 mg/ Sodium (Chloride) 55 mls @ 50 mls/hr IV BID [facility] Last Admin: 09/14/20 20:04 Dose: 50 mls/hr Documented by: Dextrose/Water (Dextrose 5% In Water) 1,000 mls @ 75 mls/hr IV ASDIRECTED [facility] Last Admin: 09/14/20 05:13 Dose: 75 mls/hr Documented by: Diltiazem HCl 100 mg/ Sodium (Chloride) 100 mls @ 5 mls/hr IV TITRATE [facility]; Protocol Last Titration: 09/14/20 07:36 Dose: 10 mg/hr, 10 mls/hr Documented by: Sodium Chloride (Normal Saline) Confirm Administered Dose 100 mls @ as directed .ROUTE .STK-MED ONE Stop: 09/14/20 06:21 Last Admin: 09/14/20 06:51 Dose: Not Given Documented by: Iopamidol (Isovue-370 (76%)) 100 ml IV . DIRECTED [facility] Stop: 09/09/20 20:00 Last Admin: 09/09/20 15:36 Dose: 100 ml Documented by: Ketorolac Tromethamine (Toradol) 15 mg IVPUSH Q6H PRN PRN Reason: Pain/Fever Stop: 09/14/20 20:10 Last Admin: 09/12/20 12:19 Dose: 15 mg Documented by: Lactobacillus Rhamnosus (Culturelle) 1 cap PO BID [facility] Lorazepam (Ativan) 0.5 mg PO Q4H PRN PRN Reason: Anxiety Lorazepam (Ativan) 0.5 mg IVPUSH Q4H PRN PRN Reason: Anxiety Last Admin: 09/09/20 20:20 Dose: 0.5 mg Documented by: Lorazepam (Ativan) 0.5 mg IVPUSH Q2H PRN PRN Reason: Anxiety Last Admin: 09/11/20 12:54 Dose: 0.5 mg Documented by: Lorazepam (Ativan) 1 mg IVPUSH ONETIME ONE Stop: 09/11/20 08:46 Last Admin: 09/11/20 08:57 Dose: 1 mg Documented by: Lorazepam (Ativan) 1 mg IVPUSH Q2H PRN PRN Reason: Anxiety Last Admin: 09/14/20 17:02 Dose: 1 mg Documented by: Lorazepam (Ativan) 1 mg IM ONETIME ONE Stop: 09/12/20 14:33 Last Admin: 09/12/20 14:25 Dose: 1 mg Documented by: Magnesium Hydroxide (Milk Of Magnesia) 30 ml PO Q12H PRN PRN Reason: Constipation Magnesium Oxide (Magnesium Oxide) 400 mg PO DAILY [facility] Last Admin: 09/10/20 15:46 Dose: Not Given Documented by: Melatonin (Melatonin) 9 mg PO BEDTIME [facility] Meloxicam (Mobic) 15 mg PO DAILY [facility] Last Admin: 09/10/20 15:47 Dose: Not Given Documented by: Memantine (Namenda) 10 mg PO BID [facility] Last Admin: 09/10/20 15:47 Dose: Not Given Documented by: Methylprednisolone Sodium Succinate (Solu-Medrol) 125 mg IVPUSH ONETIME ONE Stop: 09/09/20 21:01 Last Admin: 09/09/20 20:41 Dose: 125 mg Documented by: Methylprednisolone Sodium Succinate (Solu-Medrol) 62.5 mg IVPUSH Q8H [facility] Last Admin: 09/12/20 04:24 Dose: 62.5 mg Documented by: Methylprednisolone Sodium Succinate (Solu-Medrol) 40 mg IVPUSH Q8H [facility] Last Admin: 09/14/20 10:35 Dose: 40 mg Documented by: Midodrine (Midodrine) 5 mg PO TID [facility] Last Admin: 09/10/20 15:46 Dose: Not Given Documented by: Mirtazapine (Remeron) 30 mg PO BEDTIME [facility] Mometasone Furoate/Formoterol Fumar (Dulera 200-5 Mcg) 0 puff IH BIDRT [facility] Last Admin: 09/14/20 22:33 Dose: Not Given Documented by: Morphine Sulfate (Morphine) 4 mg IVPUSH Q2H PRN PRN Reason: air hunger Last Admin: 09/09/20 21:10 Dose: 4 mg Documented by: Morphine Sulfate (Morphine) 4 mg IVPUSH Q1H PRN PRN Reason: air hunger Last Admin: 09/11/20 13:53 Dose: 4 mg Documented by: Morphine Sulfate (Morphine) 8 mg IVPUSH Q1H PRN PRN Reason: air hunger Last Admin: 09/12/20 06:00 Dose: 8 mg Documented by: Morphine Sulfate (Morphine) 8 mg IVPUSH Q1H PRN PRN Reason: air hunger Last Admin: 09/14/20 20:04 Dose: 8 mg Documented by: Olanzapine (Zyprexa) 10 mg IM ONETIME ONE Stop: 09/12/20 18:50 Last Admin: 09/12/20 19:26 Dose: 10 mg Documented by: Olanzapine (Zyprexa) 10 mg IM ONETIME PRN PRN Reason: severe agitation Last Admin: 09/14/20 03:57 Dose: 10 mg Documented by: Ondansetron HCl (Zofran) 4 mg IV Q6H PRN PRN Reason: Nausea/Vomiting Ondansetron HCl (Zofran Odt) 4 mg PO Q6H PRN PRN Reason: Nausea able to take PO Oxycodone HCl (Oxycodone) 5 mg PO Q4H PRN PRN Reason: Pain (moderate 4-6) Pantoprazole Sodium (Protonix) 40 mg PO ACBREAKFAST [facility] Potassium Chloride (Potassium Chloride) 40 meq PO ONETIME ONE Stop: 09/09/20 13:21 Last Admin: 09/09/20 13:49 Dose: 40 meq Documented by: Senna/Docusate Sodium (Senna Plus) 1 tab PO BID PRN PRN Reason: Constipation Sodium Chloride (Saline Flush) 10 ml FLUSH ONETIME ONE Stop: 09/09/20 14:28 Last Admin: 09/09/20 15:36 Dose: 10 ml Documented by: Tamsulosin HCl (Flomax) 0.4 mg PO DAILY [facility] Last Admin: 09/10/20 15:46 Dose: Not Given Documented by: - Exam General: Reports: Other ()
== END 2020-09-15 00:39 | disposition expired | DRG 177 ==
LOC: JP.ED 11:53 → JP.ICU 18:26 → OBSVTOIN 09-10 08:26 → JP.MS 09-14 18:06 → JP.ICU 09-14 18:06
PROVIDERS: ADMIT Internal Medicine; ATTEND Internal Medicine
PROC: 5A09557 Assistance with Respiratory Ventilation, Greater than 96 Consecutive Hours, Continuous Positive Airway Pressure (ICD-10-PCS; principal; 2020-09-10)
PROC: XW033N5 Introduction of Meropenem-vaborbactam Anti-infective into Peripheral Vein, Percutaneous Approach, New Technology Group 5 (ICD-10-PCS; 2020-09-10)
DX: J18.9 Pneumonia, unspecified organism (principal); J69.0 Pneumonitis due to inhalation of food and vomit; R79.89 Other specified abnormal findings of blood chemistry; U07.1 COVID-19; F03.91 Unspecified dementia, unspecified severity, with behavioral disturbance; R79.82 Elevated C-reactive protein (CRP); R09.02 Hypoxemia; E87.6 Hypokalemia; J44.0 Chronic obstructive pulmonary disease with (acute) lower respiratory infection; E86.0 Dehydration; G20 Parkinson's disease; Z79.2 Long term (current) use of antibiotics; Z51.5 Encounter for palliative care; J30.9 Allergic rhinitis, unspecified; J45.909 Unspecified asthma, uncomplicated; R06.03 Acute respiratory distress; R23.0 Cyanosis; H35.30 Unspecified macular degeneration; Z66 Do not resuscitate; J43.9 Emphysema, unspecified; H04.129 Dry eye syndrome of unspecified lacrimal gland; K59.09 Other constipation; K21.9 Gastro-esophageal reflux disease without esophagitis; N40.0 Benign prostatic hyperplasia without lower urinary tract symptoms; F03.90 Unspecified dementia, unspecified severity, without behavioral disturbance, psychotic disturbance, mood disturbance, and anxiety; M54.9 Dorsalgia, unspecified; G89.29 Other chronic pain; M81.0 Age-related osteoporosis without current pathological fracture; F32.9 Major depressive disorder, single episode, unspecified; Z96.649 Presence of unspecified artificial hip joint; Z99.81 Dependence on supplemental oxygen; Z91.018 Allergy to other foods; Z79.82 Long term (current) use of aspirin; Z79.899 Other long term (current) drug therapy; Z95.0 Presence of cardiac pacemaker; Z95.5 Presence of coronary angioplasty implant and graft; Z87.891 Personal history of nicotine dependence
CPT/HCPCS: 36415 ×2; 36600; 51702; 71045 ×2; 71046 ×2; 71275; 74018 ×2; 80048 ×3; 82803; 83615; 83735; 84145; 84484 ×2; 85025; 85027 ×2; 85379; 86140; 94640 ×3; 94660; 96365; 96366; 96367; 96375 ×2; 96376 ×2; 99285 ×2; A9270 ×5; G0378 ×3; J0131 ×2; J0696; J1885; J1940; J2060 ×3; J2185 ×2; J2270 ×5; J2930 ×2; J3480; J7050 ×3; Q9967; 70450; 93010; 99219; 99232; J1200; J1630; J1650; J1956; J2920; J3490; J7060; J7620-GY